=== PATIENT | male | born 1980 | race Caucasian/White ===

== ENCOUNTER 2017-03-27 09:54 | Emergency (ER) | payer SELFPAY ==
[~2017-03-27 09:54] MED LIST: AMOX875T PO; CIPR500T94 PO; HYDR-971 PO; MESA800T2 PO; METR500T PO; PRED-220 PO; PRED20TA PO; PRED50TA PO
[2017-03-27] MEDS ORDERED: PRED-220 PO (10:26)
--- NOTE | 2017-03-27 10:26 | PHYS DOC ---
Past History Past Medical History: Other Past Surgical History: No Surgical History Alcohol Use: None Drug Use: None Adult General Chief Complaint Chief Complaint: HEMORRHOIDS [facility] HPI Patient is a 36 year old male who presents with complaint of rectal pain and possible hemorrhoid. Patient states that he noticed the symptoms 3 days ago. Patient states he has history of ulcerative colitis and is currently having a flareup. Patient is not on any medications currently for control of his ulcerative colitis. Patient states that he had followed with a chamber magistrate in [place], [place] in the past but is not currently following with a specialist at this time. Patient states that he has been having multiple stools and has had increase in straining which likely led to his hemorrhoid. Patient states that the bump is along the right side of his anus. Patient states that the lesion is very tender to touch. Patient has been trying multiple therapies including hemorrhoid cream, sitz baths, and cleaning the area which has provided temporary relief of symptoms. Patient states that he has not had a hemorrhoid before thus he came to the emergency department to have it checked to see if this is indeed what it was. Review of Systems Review of Systems Constitutional: Denies fever or chills [] Eyes: Denies change in visual acuity, redness, or eye pain [] HENT: Denies nasal congestion or sore throat [] Respiratory: Denies cough or shortness of breath [] Cardiovascular: No additional information not addressed in HPI [] GI: Anal pain, anal swelling, abdominal pain, loose bloody stools, denies nausea and vomiting [] : Denies dysuria or hematuria [] Musculoskeletal: Denies back pain or joint pain [] Integument: Denies rash or skin lesions [] Neurologic: Denies headache, focal weakness or sensory changes [] Current Medications Current Medications Current Medications Medications (Trade) Dose Ordered Sig/[facility] Start Time Stop Time Status Last Admin Dose Admin Methylprednisolone Sodium Succinate (Solu-Medrol 125mg Vial) 125 mg 1X ONCE 03/27/17 10:45 03/27/17 10:46 Allergies Allergies Allergies Coded Allergies Type Severity Reaction Last Updated Verified No Known Drug Allergies 09/19/15 No Physical Exam Physical Exam Constitutional: Well developed, well nourished, no acute distress, non-toxic appearance. [] HENT: Normocephalic, atraumatic, bilateral external ears normal, oropharynx moist, no oral exudates, nose normal. [] Cardiovascular:Heart rate regular rhythm, no murmur [] Lungs & Thorax: Bilateral breath sounds clear to auscultation [] Abdomen: Bowel sounds normal, soft, mild left lower quadrant tenderness to palpation, no guarding or rebound tenderness, no masses, no pulsatile masses. Rectal: 2 cm swollen semiflexed hemorrhoid along right portion of the anus, tender to palpation, moderate perianal skin irritation, no active bleeding [] Skin: Warm, dry, no erythema, no rash. [] Back: No tenderness, no CVA tenderness. [] Extremities: No tenderness, no cyanosis, no clubbing, ROM intact, no edema. [] Neurologic: Alert and oriented X 3, normal motor function, normal sensory function, no focal deficits noted. [] EKG EKG Not performed [] Radiology/Procedures Radiology/Procedures Not performed [] Course & Med Decision Making Course & Med Decision Making Pertinent Labs and Imaging studies reviewed. (See chart for details) Patient has a hemorrhoid which feels mild to moderately fluctuant. This hemorrhoid has been present for the past 72 hours. Excision is not recommended at this time due to potential complications. After speaking with the patient, we decided the best course of therapy would be to start the patient on steroids which will help treat the patient's ulcerative colitis exacerbation as well as inflammation related to his hemorrhoid. Patient was given IM Solu-Medrol in the emergency department and will continue on prednisone taper as outpatient. Patient referred to Dr. Betts of gastroenterology and Dr. Garcia of general surgery for evaluation in the next 1-2 weeks. Advised return to the emergency department for any worsening symptoms. Patient voiced understanding and in agreement with treatment plan. Dragon Disclaimer Dragon Disclaimer This chart was dictated in whole or in part using Voice Recognition software in a busy, high-work load, and often noisy Emergency Department environment. It may contain unintended and wholly unrecognized errors or omissions. Departure Departure: Impression: Primary Impression: External hemorrhoid Additional Impression: Ulcerative colitis Disposition: 01 HOME, SELF-CARE Condition: IMPROVED Referrals: WILLIS STUBBS DO (PCP) NALLELY BETTS MD, THOMAS W MD Patient Instructions: Hemorrhoids, Ulcerative Colitis Additional Instructions: Follow-up with gastroenterology in the next 1-2 weeks. You may need to have general surgical evaluation for persistent or recurrent hemorrhoids. This can be done in the next 1-2 weeks. Return to the emergency department for any worsening symptoms. Scripts Prednisone (PREDNISONE) 10 Mg Tablet 10 MG PO UD for PREDNISONE TAPER, #39 TAB 0 Refills Take 3 tablets by mouth twice a day for 3 days, then take 2 tablets by mouth twice a day for 3 days, then take 1 tablet by mouth twice a day for 3 days, then take 1 tablet by mouth daily x 3 days, then stop. Prov: ELEONORA LOU MD 03/27/17 Problem Qualifiers Additional Impression: Ulcerative colitis Ulcerative colitis location: unspecified ulcerative colitis location Digestive disease complication type: unspecified complication Qualified Codes : K51.919 - Ulcerative colitis, unspecified with unspecified complications ELEONORA LOU MD March 27, 2017 10:26
[2017-03-27 10:45] VITALS: BP 149/81
[2017-03-27] MEDS ORDERED: methylPREDNISolone SOD SUCC PF 125 MG/2 ML VIAL. IM ONE (10:45)
== END 2017-03-27 10:45 | disposition home or self-care (01) ==
LOC: ER 09:54
DX: K64.4 Residual hemorrhoidal skin tags (principal); K51.90 Ulcerative colitis, unspecified, without complications
CPT/HCPCS: 96372; 99283; J2930

== ENCOUNTER 2017-06-04 12:17 | Emergency (ER) | payer SELFPAY ==
[~2017-06-04] VITALS: Ht 175.3 cm; Wt 117.0 kg
[2017-06-04] MEDS ORDERED: DICY10CA53 PO (13:04)
[2017-06-04] MEDS ORDERED: PRED50TA PO (13:04)
--- NOTE | 2017-06-04 13:04 | PHYS DOC ---
Past History Past Medical History: Other Past Surgical History: Other Alcohol Use: None Drug Use: None Adult General Chief Complaint Chief Complaint: ABDOMINAL PAIN HPI HPI Patient is a 36 year old male who presents with complaint of abdominal pain. Patient has history of ulcerative colitis. Patient states his symptoms have been present over the past 5 days. Patient states that he started having decreased appetite and mild abdominal discomfort at onset of symptoms. Patient states over the past 24 hours he has had sharp cramping abdominal pain which she states is primarily along the left side and middle of his abdomen. Patient states that this is typical for flareups of ulcerative colitis. Patient states that he is currently without insurance and does not have a architectural drafting instructor that he can follow with at this time. The patient states that he has been taking Tylenol with no relief in symptoms. Patient states that he has been on prednisone therapy which has typically controlled his symptoms. Patient states that he is no longer on Asacol and sulfasalazine as he cannot afford this medication at this time. Patient denies any fevers or bloody stools and has had no vomiting. Patient rates his pain as 6 out of 10 currently. Review of Systems Review of Systems Constitutional: Denies fever or chills [] Eyes: Denies change in visual acuity, redness, or eye pain [] HENT: Denies nasal congestion or sore throat [] Respiratory: Denies cough or shortness of breath [] Cardiovascular: Denies chest pain or edema [] GI: Abdominal pain, diarrhea, denies nausea, vomiting, or bloody stools [] : Denies dysuria or hematuria [] Musculoskeletal: Denies back pain or joint pain [] Integument: Denies rash or skin lesions [] Neurologic: Denies headache, focal weakness or sensory changes [] Allergies Allergies Allergies Coded Allergies Type Severity Reaction Last Updated Verified No Known Drug Allergies 09/19/15 No Physical Exam Physical Exam Constitutional: Well developed, well nourished, afebrile, appears in mild to moderate discomfort. [] HENT: Normocephalic, atraumatic, bilateral external ears normal, oropharynx moist, no oral exudates, nose normal. [] Eyes: PERRLA, EOMI, conjunctiva normal, no discharge. [] Neck: Normal range of motion, no tenderness, supple, no stridor. [] Cardiovascular:Heart rate regular rhythm, no murmur [] Lungs & Thorax: Bilateral breath sounds clear to auscultation [] Abdomen: Bowel sounds normal, soft, periumbilical and left-sided tenderness to palpation with guarding, no rebound tenderness, no masses, no pulsatile masses. [] Skin: Warm, dry, no erythema, no rash. [] Back: No tenderness, no CVA tenderness. [] Extremities: No tenderness, no cyanosis, no clubbing, ROM intact, no edema. [] Neurologic: Alert and oriented X 3, normal motor function, normal sensory function, no focal deficits noted. [] Current Patient Data Vital Signs Vital Signs Date Time Temp Pulse Resp B/P (MAP) Pulse Ox O2 Delivery O2 Flow Rate FiO2 06/04/17 12:56 98.1 82 22 98 Room Air EKG EKG Not performed [] Radiology/Procedures Radiology/Procedures Not performed [] Course & Med Decision Making Course & Med Decision Making Pertinent Labs and Imaging studies reviewed. (See chart for details) Patient's vital signs are stable. The patient's symptoms appear consistent with acute ulcerative colitis flareup. I expressed the patient concern over multiple prednisone treatment regimens that he has received over the past year. He states that this is not ideal for him, however he does not know what else to do as he does not have a architectural drafting instructor to follow with at this time. The patient sounds optimistic that he has a job opportunity which will allow him to get insurance and thus reestablish care within the next 1-2 months. The patient will be started on a 5 day course of prednisone including a loading dose which was given in the emergency department. Patient prescribed Bentyl and instructed to continue on Tylenol to help with abdominal pain symptoms. Recommended follow- up ideally in the next 3-5 days or at the next appointment at the patient is able to establish. Recommended return to emergency department for any worsening symptoms. Patient voiced understanding and in agreement with treatment plan. Dragon Disclaimer Dragon Disclaimer This chart was dictated in whole or in part using Voice Recognition software in a busy, high-work load, and often noisy Emergency Department environment. It may contain unintended and wholly unrecognized errors or omissions. Departure Departure: Impression: Primary Impression: Ulcerative colitis Disposition: 01 HOME, SELF-CARE Condition: STABLE Referrals: WILLIS STUBBS DO (PCP) Patient Instructions: Ulcerative Colitis Additional Instructions: Follow-up with a family physician in the next 5 days for reevaluation. Return to the emergency department for any worsening symptoms. Scripts Dicyclomine Hcl (BENTYL) 10 Mg Capsule 1 CAP PO TID, #90 CAP 0 Refills Prov: ELEONORA LOU MD 06/04/17 Prednisone (PREDNISONE) 50 Mg Tablet 1 TAB PO DAILY, #4 TAB Prov: ELEONORA LOU MD 06/04/17 Problem Qualifiers Primary Impression: Ulcerative colitis Ulcerative colitis location: unspecified ulcerative colitis location Digestive disease complication type: without complication Qualified Codes: K51.90 - Ulcerative colitis, unspecified, without complications ELEONORA LOU MD Jun 04, 2017 13:04
[2017-06-04] MEDS ORDERED: predniSONE 10 MG TABLET PO ONE (13:15)
[2017-06-04] MEDS ORDERED: DICYCLOMINE HCL 20 MG TABLET PO ONE (13:15)
[2017-06-04 13:18] VITALS: BP 130/79
== END 2017-06-04 13:15 | disposition home or self-care (01) ==
LOC: ER 12:17
DX: K51.90 Ulcerative colitis, unspecified, without complications (principal)
CPT/HCPCS: 99284; J7512

== ENCOUNTER 2017-08-11 12:54 | Emergency (ER) | payer SELFPAY ==
[~2017-08-11] VITALS: Ht 175.3 cm; Wt 113.4 kg
[~2017-08-11 12:54] MED LIST changes: +DICY10CA53 PO
[2017-08-11] MEDS ORDERED: PRED50TA PO (13:28)
--- NOTE | 2017-08-11 13:28 | PHYS DOC ---
Past History Past Medical History: Other Past Surgical History: Other Alcohol Use: None Drug Use: None Adult General Chief Complaint Chief Complaint: FOOT INJURY PAIN HPI HPI Patient is a 36 year old male who presents with left foot pain. the patient has 2 day history of pain over lateral left foot extending to 5th small toe. Denies any history of trauma. he wears steel toed boots at work. States he has pain with standing. Reports that the toe is slightly red. Denies fever. History of gout in the past & he is concerned that he is having recurrence. Review of Systems Review of Systems Constitutional: Denies fever or chills HENT: Denies nasal congestion or sore throat Respiratory: Denies cough or shortness of breath Cardiovascular: Denies chest pain GI: Denies abdominal pain, nausea, vomiting Musculoskeletal: Reports foot pain Integument: Denies rash or skin lesions Neurologic: Denies headache Allergies Allergies Allergies Coded Allergies Type Severity Reaction Last Updated Verified No Known Drug Allergies 09/19/15 No Physical Exam Physical Exam Constitutional: obese, no acute distress, non-toxic appearance. HENT: Normocephalic, atraumatic, bilateral external ears normal, oropharynx moist, nose normal. Eyes: conjunctiva normal, no discharge. Neck: supple, no stridor. Cardiovascular: no edema. Lungs & Thorax: no respiratory distress. Abdomen: nondistended. Skin: Warm, dry, no rash. Extremities: left foot without swelling or deformity, very slight erythema without warmth to 5th small toe, no pain with palpation of the toe but there is pain with palpation over distal 5th metatarsal. dp/pt 2+, sensation intact to foot. Neurologic: Alert and oriented X 3 EKG EKG [] Radiology/Procedures Radiology/Procedures [] Course & Med Decision Making Course & Med Decision Making Pertinent Labs and Imaging studies reviewed. (See chart for details) The patient presents with foot pain. Appears atypical for gout, more likely foot sprain or overuse injury. Recommend supportive care - rest, ice, elevate, tylenol or even better ibuprofen. Patient states he has ulcerative colitis & can't take NSAIDs. He is very concerned about returning to his work & that over the counter meds at home have not helped. I am reluctant to prescribe colchicine due to possible adverse effects with unclear diagnosis of gout. Ultimately I gave prescription for prednisone burst that he may fill as needed if symptoms do not resolve & if he has ongoing concern that this is gout. Would follow up with primary care or orthopedics if not improving in 1 week. Discharged home in stable condition. [] Dragon Disclaimer Dragon Disclaimer This chart was dictated in whole or in part using Voice Recognition software in a busy, high-work load, and often noisy Emergency Department environment. It may contain unintended and wholly unrecognized errors or omissions. Departure Departure: Impression: Primary Impression: Foot pain Disposition: HOME, SELF-CARE Condition: STABLE Referrals: PCP,TEMITOPE (PCP) AMINA BATRES MD Patient Instructions: Foot Sprain, Gout, [id number] Additional Instructions: You were seen in the emergency department today for foot pain. Exam suggests foot sprain but it is possible that this could be atypical gout. There is not an immediate cure. Please rest, ice, elevate, wear supportive shoes, take tylenol or ibuprofen for pain. You can take prednisone if desired which may help if it is in fact gout. Follow up with primary care physician or in the orthopedic clinic if symptoms persist greater than 1 week. Come back for high fever, spreading redness/warmth, any otherwise worsening condition. Scripts Prednisone (PREDNISONE) 50 Mg Tablet 1 TAB PO DAILY, #5 TAB Prov: CHICHI BARRAZA MD 08/11/17 CHICHI BARRAZA MD Aug 11, 2017 13:28
[2017-08-11 13:44] VITALS: BP 119/74
== END 2017-08-11 13:44 | disposition home or self-care (01) ==
LOC: ER 12:54
DX: M79.672 Pain in left foot (principal); M10.9 Gout, unspecified
CPT/HCPCS: 99283

== ENCOUNTER 2017-11-30 11:04 | Emergency (ER) | payer OTHER ==
[2017-11-30] MEDS ORDERED: METH4TAB2 PO (12:08)
[2017-11-30] MEDS ORDERED: SULFASALAZINE (12:08)
--- NOTE | 2017-11-30 12:09 | PHYS DOC ---
Past History Past Medical History: Other Additional Past Medical Histor: ulcerative colitis Past Surgical History: Tonsillectomy, Other Smoking: Non-smoker Alcohol Use: None Drug Use: None Adult General Chief Complaint Chief Complaint: OTHER COMPLAINTS, needs work excuse [facility] 37-year-old male patient with history of ulcerative colitis complaining of episodes of nonbloody diarrhea in the morning for the last 1 week. Patient states he had couple of episodes of accident while he was at work with stool incontinence before reaching to the bathroom and was sent home and his employer wants letter of return to work. Patient states he has appointment with his GI specialist few days and cannot wait until that time. Patient states he used to take Asacol and sulfasalazine but to stop few months ago after controlling of his symptoms with diet. Patient complaining of cramping abdominal pain and rated his pain mild and doesn't want to have blood tests or IV fluid and requesting refill of his sulfasalazine. Review of Systems Review of Systems Constitutional: Denies fever or chills [] Eyes: Denies change in visual acuity, redness, or eye pain [] HENT: Denies nasal congestion or sore throat [] Respiratory: Denies cough or shortness of breath [] Cardiovascular: No additional information not addressed in HPI [] GI: Denies nausea, vomiting, bloody stools, reports abdominal pain and diarrhea [] : Denies dysuria or hematuria [] Musculoskeletal: Denies back pain or joint pain [] Integument: Denies rash or skin lesions [] Neurologic: Denies headache, focal weakness or sensory changes [] Endocrine: Denies polyuria or polydipsia [] All other systems were reviewed and found to be within normal limits, except as documented in this note. Allergies Allergies Allergies Coded Allergies Type Severity Reaction Last Updated Verified No Known Drug Allergies 09/19/15 No Physical Exam Physical Exam Constitutional: Well developed, well nourished, no acute distress, non-toxic appearance. [] HENT: Normocephalic, atraumatic, bilateral external ears normal, oropharynx moist, no oral exudates, nose normal. [] Eyes: PERRLA, EOMI, conjunctiva normal, no discharge. [] Neck: Normal range of motion, no tenderness, supple, no stridor. [] Cardiovascular:Heart rate regular rhythm, no murmur [] Lungs & Thorax: Bilateral breath sounds clear to auscultation [] Abdomen: Bowel sounds normal, soft, no tenderness, no masses, no pulsatile masses. [] Skin: Warm, dry, no erythema, no rash. [] Back: No tenderness, no CVA tenderness. [] Extremities: No tenderness, no cyanosis, no clubbing, ROM intact, no edema. [] Neurologic: Alert and oriented X 3, normal motor function, normal sensory function, no focal deficits noted. [] Psychologic: Affect normal, judgement normal, mood normal. [] EKG EKG [] Radiology/Procedures Radiology/Procedures [] Course & Med Decision Making Course & Med Decision Making Evaluation of patient in ER showed 37-year-old male patient with history of ulcerative colitis who missed his job related to episodes of diarrhea and needs release to work. Patient had unremarkable physical exam and did not want to have blood test in ER. Plan discharge patient home with prescription of sulfasalazine and Medrol Dosepak and instruction to follow up with his GI specialist. Dragpanchito Disclaimer Gayathri Disclaimer This electronic medical record was generated, in whole or in part, using a voice recognition dictation system. Departure Departure: Impression: Primary Impression: Exacerbation of ulcerative colitis Additional Impression: Encounter to obtain excuse from work Disposition: HOME, SELF-CARE (At 1205) Condition: STABLE Referrals: NON,STAFF (PCP) Patient Instructions: Ulcerative Colitis Additional Instructions: Follow-up with your GI specialist in 3-5 days Return as needed Scripts Methylprednisolone (MEDROL) 4 Mg Tab.ds.pk 1 PKG PO UD, #1 PKG Prov: SAGAR ROCA MD 11/30/17 [sulsalazine] No Conflict Check 1 TAB BID, #60 Prov: SAGAR ROCA MD 11/30/17 Problem Qualifiers SAGAR ROCA MD Nov 30, 2017 12:09
[2017-11-30 12:36] VITALS: BP 119/87
== END 2017-11-30 12:36 | disposition home or self-care (01) ==
LOC: ER 11:04
DX: Z02.79 Encounter for issue of other medical certificate (principal); K51.80 Other ulcerative colitis without complications
CPT/HCPCS: 99283

== ENCOUNTER 2017-12-07 07:36 | Emergency (ER) | payer OTHER ==
[~2017-12-07 07:36] MED LIST changes: +METH4TAB2 PO; +SULFASALAZINE
[2017-12-07] MEDS ORDERED: CYCL-331 PO (08:58)
--- NOTE | 2017-12-07 08:58 | PHYS DOC ---
Past History Past Medical History: Other Additional Past Medical Histor: ulcerative colitis Past Surgical History: Tonsillectomy, Other Smoking: Non-smoker Alcohol Use: None Drug Use: None Adult General Chief Complaint Chief Complaint: SHOULDER INJURY HPI HPI Patient is a 37 year old M who presents with with right shoulder pain started after a fall this morning. States he fell up against his car with his arm overhead. He describes pain with AB duction. He also describes tingling in his first and second finger. He has no weakness. He does not feel that there is any chance he broke a bone. He has no other associated symptoms. He has no other exacerbating or relieving factors. Review of Systems Review of Systems Constitutional: Denies fever or chills [] Eyes: Denies change in visual acuity, redness, or eye pain [] HENT: Denies nasal congestion or sore throat [] Respiratory: Denies cough or shortness of breath [] Cardiovascular: No additional information not addressed in HPI [] GI: Denies abdominal pain, nausea, vomiting, bloody stools or diarrhea [] : Denies dysuria or hematuria [] Musculoskeletal: Negative except history of present illness Integument: Denies rash or skin lesions [] Neurologic: Denies headache, focal weakness or sensory changes [] Endocrine: Denies polyuria or polydipsia [] All other systems were reviewed and found to be within normal limits, except as documented in this note. Family History Family History No pertinent family medical history was reported Current Medications Current Medications Current medications were reviewed Allergies Allergies Allergies Coded Allergies Type Severity Reaction Last Updated Verified No Known Drug Allergies 09/19/15 No Physical Exam Physical Exam Constitutional: Well developed, well nourished, no acute distress, non-toxic appearance. [] HENT: Normocephalic, Eyes: EOMI, conjunctiva normal, no discharge. [] Neck: Normal range of motion, no tenderness, supple, no stridor. [] Cardiovascular:Heart rate regular rhythm, no murmur [] Lungs & Thorax: Bilateral breath sounds clear to auscultation [] Abdomen: Bowel sounds normal, soft, no tenderness, no masses, no pulsatile masses. [] Skin: Warm, dry, no erythema, no rash. [] Extremities: Right shoulder: Mild anterior swelling noted with mild generalized tenderness to palpation more localized over the deltoid and supraspinatus, passive range of motion normal however active range of motion is limited due to pain. Strength testing limited due to pain. Neurovascularly intact Neurologic: Alert and oriented X 3, normal motor function, normal sensory function, no focal deficits noted. [] Psychologic: Affect normal, judgement normal, mood normal. [] Current Patient Data Vital Signs Normal vital signs. Please review nursing documentation for specifics EKG EKG [] Radiology/Procedures Radiology/Procedures Imaging was declined Course & Med Decision Making Course & Med Decision Making Pertinent Labs and Imaging studies reviewed. (See chart for details) [] Dragon Disclaimer Dragon Disclaimer This electronic medical record was generated, in whole or in part, using a voice recognition dictation system. Departure Departure: Impression: Primary Impression: Right shoulder injury Disposition: HOME, SELF-CARE Condition: STABLE Referrals: NON,STAFF (PCP) Patient Instructions: Shoulder Sprain Additional Instructions: Chandu was seen in the emergency department for shoulder pain after an injury. No emergency medical condition was found on history or physical exam. His symptoms are most consistent with a shoulder strain versus rotator cuff injury versus mild stretch of his nerve. He is placed in a sling and given muscle relaxer for his pain. He was advised to follow-up with orthopedics and/or his primary care doctor as soon as possible for further management and to consider MRI. Scripts Cyclobenzaprine Hcl (CYCLOBENZAPRINE HCL) 10 Mg Tablet 1 TAB PO TID Y for PAIN for 3 Days, #9 TAB Prov: COLEEN ROBLES MD 12/07/17 Problem Qualifiers Primary Impression: Right shoulder injury Encounter type: initial encounter Qualified Codes: S49.91XA - Unspecified injury of right shoulder and upper arm, initial encounter COLEEN ROBLES MD Dec 07, 2017 08:58
[2017-12-07 09:09] VITALS: BP 143/92
== END 2017-12-07 09:09 | disposition home or self-care (01) ==
LOC: ER 07:36
DX: S49.91XA Unspecified injury of right shoulder and upper arm, initial encounter (principal); W19.XXXA Unspecified fall, initial encounter; Y93.89 Activity, other specified; Y99.8 Other external cause status; Y92.89 Other specified places as the place of occurrence of the external cause
CPT/HCPCS: 99283

== ENCOUNTER 2018-01-25 11:01 | Emergency (ER) | payer SELFPAY ==
[~2018-01-25] VITALS: Ht 177.8 cm; Wt 99.8 kg
[~2018-01-25 11:01] MED LIST changes: +CYCL-331 PO
[2018-01-25] MEDS ORDERED: IV NORMAL SALINE 1,000ML 1,000 ML IV SCH (11:15)
[2018-01-25] MEDS ORDERED: 0.9 % SODIUM CHLORIDE 10 ML DISP.SYRIN. IV PRN (11:15)
[2018-01-25] MEDS ORDERED: methylPREDNISolone SOD SUCC PF 125 MG/2 ML VIAL. IV ONE (11:45)
[2018-01-25] MEDS ORDERED: ONDANSETRON PF 4 MG/2 ML VIAL. IV ONE (11:45)
[2018-01-25 11:50] LABS: AMPHETAMINE/METHAMPHETAMINE NEG (NEG); BARBITURATES NEG (NEG); BENZODIAZEPINES NEG (NEG); CANNABINOIDS NEG (NEG); COCAINE NEG (NEG); METHADONE NEG (NEG); OPIATES NEG (NEG); PHENCYCLIDINE NEG (NEG)
[2018-01-25] MEDS ORDERED: IOHEXOL 240 MG/ML 50ML VIAL. PO ONE (12:00)
[2018-01-25] MEDS ORDERED: IOHEXOL 300 MG/ML 75 ML VIAL. IV ONE (12:00)
[2018-01-25 12:05] LABS: ALBUMIN 3.4 g/dL (3.4-5.0); ALBUMIN/GLOBULIN RATIO 0.8 (1.0-1.7); CALCIUM 9.2 mg/dL (8.5-10.1); CREATININE 1.3 mg/dL (0.7-1.3); GFR 62.8; POTASSIUM 3.9 mmol/L (3.5-5.1); TOTAL BILIRUBIN 0.3 mg/dL (0.2-1.0); TOTAL PROTEIN 7.9 g/dL (6.4-8.2)
[2018-01-25 12:06] LABS: AMORPHOUS SEDIMENT,UR PRESENT /HPF; BACTERIA,URINE 0 /HPF (0-FEW); BILIRUBIN,URINE NEG (NEG); CLARITY,URINE CLOUDY; COLOR,URINE YELLOW; GLUCOSE,URINE NEG (NEG); NITRITE,URINE NEG (NEG); RBC,URINE RARE /HPF (0-2); SQUAMOUS EPITHELIAL CELL,UR OCC /LPF; UROBILINOGEN,URINE 0.2 mg/dL (0.2 mg/dL); WBC,URINE 0 /HPF (0-4)
[2018-01-25 12:11] LABS: BASO # 0.1 x10^3/uL (0.0-0.2); BASO % 1 % (0-3); EOS # 0.2 x10^3/uL (0.0-0.7); EOS % 2 % (0-3); HEMATOCRIT 43.6 % (39.0-53.0); HEMOGLOBIN 14.8 g/dL (13.0-17.5); LYMPH # 1.5 x10^3/uL (1.0-4.8); LYMPH % 14 % (24-48); MEAN CORPUSCULAR HEMOGLOBIN 30 pg (25-35); MEAN CORPUSCULAR HGB CONC 34 g/dL (31-37); MEAN CORPUSCULAR VOLUME 88 fL (79-100); MONO # 1.1 x10^3/uL (0.0-1.1); MONO % 10 % (0-9); NEUT # 8.2 x10^3uL (1.8-7.7); NEUT % 74 % (31-73); PLATELET COUNT 414 x10^3/uL (140-400); RED BLOOD COUNT 4.98 x10^6/uL (4.30-5.70); RED CELL DISTRIBUTION WIDTH 13.2 % (11.5-14.5); WHITE BLOOD COUNT 11.2 x10^3/uL (4.0-11.0)
[2018-01-25 12:14] LABS: FECAL OB PT POSITIVE (NEG)
[2018-01-25] MEDS ORDERED: IV RINGERS SOLUTION,LACTATED 1,000 ML IV SCH (12:30)
--- NOTE | 2018-01-25 13:06 | RAD ---
CT abdomen/pelvis with contrast 01/25/2018 Indication: Abdominal pain for 3 days. Comparison: None available. Technique: Multiple axial CT images of the abdomen and pelvis were obtained after the intravenous administration of 74 cc Omnipaque 300. Coronal and sagittal reformats are provided. Findings: Visualized portions of the lung bases appear clear. Heart size is within normal limits. There is diffuse hypoattenuation of the hepatic parenchyma suggestive of hepatic steatosis. Few subcentimeter hypodensities are identified in the left hepatic lobe and right hepatic dome which are too small to characterize, however statistically felt to represent simple cysts. Spleen is nonenlarged. Pancreas is normal in appearance. Gallbladder is present without adjacent inflammatory changes. Adrenal glands are normal in appearance. Abdominal aorta is normal in course and caliber. There is no free fluid or free intraperitoneal air. The kidneys enhance symmetrically. No suspicious renal mass. No renal calculi are identified. There is no hydronephrosis. There is circumferential wall thickening involving the colon from the cecum to the rectum. Normal appendix is visualized. Mild pericolonic inflammatory changes are present. There are numerous nonenlarged mesenteric lymph nodes measuring up to 10 mm in the right lower quadrant (series 2, image 50). Prostate and seminal vesicles are normal. Urinary bladder is within normal limits given degree of distention. No suspicious osseous lesions are identified. Sacroiliac joints are normal in appearance. Impression: 1. Findings are suggestive of a pancolitis which may be of infectious/inflammatory etiology. Pancolitis may be seen in the setting of C. difficile. Consideration may be given for underlying inflammatory bowel disease (ulcerative colitis). Terminal ileum appears preserved. Mesenteric borderline lymph nodes are likely reactive. PQRS Compliance Statement: One or more of the following individualized dose reduction techniques were utilized for this examination: 1. Automated exposure control 2. Adjustment of the mA and/or kV according to patient size 3. Use of iterative reconstruction technique
--- NOTE | 2018-01-25 13:22 | PHYS DOC ---
Past History Past Medical History: Other Additional Past Medical Histor: ulcerative colitis Past Surgical History: Tonsillectomy, Other Smoking: Non-smoker Alcohol Use: None Drug Use: None Adult General Chief Complaint Chief Complaint: ABDOMINAL PAIN [facility] 37-year-old male patient with history of ulcerative colitis without taking medication for his disease states he usually has 5-8 episodes of diarrhea every day but for the last 1 week he had increasing number of his bowel movement with about 15 episodes of nonbloody stool but today he had small amount of dark red blood in stool. Patient complaining of left lower quadrant pain as a constant pain with radiation to his back that getting worse during bowel movement and rated his pain 6/10. Patient complaining of generalized weakness and unable to eat or drink anything because he gets bowel movement whenever he drinks or eats something. Patient denies fever and chills, cough and congestion, chest pain and shortness of breath. Patient states his urine is darker than usual. Review of Systems Review of Systems Constitutional: Denies fever or chills [] Eyes: Denies change in visual acuity, redness, or eye pain [] HENT: Denies nasal congestion or sore throat [] Respiratory: Denies cough or shortness of breath [] Cardiovascular: No additional information not addressed in HPI [] GI: Reports abdominal pain, bloody stools, diarrhea [] : Denies dysuria or hematuria [] Musculoskeletal: Denies back pain or joint pain [] Integument: Denies rash or skin lesions [] Neurologic: Denies headache, focal weakness or sensory changes [] Endocrine: Denies polyuria or polydipsia [] All other systems were reviewed and found to be within normal limits, except as documented in this note. Current Medications Current Medications Current Medications Medications (Trade) Dose Ordered Sig/Camacho Start Time Stop Time Status Last Admin Dose Admin Fentanyl Citrate (Fentanyl 2ml Vial) 50 mcg 1X ONCE 01/25/18 11:45 01/25/18 11:46 DC Iohexol (Omnipaque 240 Mg/ml) 30 ml 1X ONCE 01/25/18 12:00 01/25/18 12:01 DC 01/25/18 12:42 30 ML Iohexol (Omnipaque 300 Mg/ml) 75 ml 1X ONCE 01/25/18 12:00 01/25/18 12:01 DC 01/25/18 12:42 75 ML Lactated Ringer's 1,000 ml @ 1,000 mls/hr Q1H 01/25/18 12:30 01/25/18 11:25 1,000 MLS/HR Methylprednisolone Sodium Succinate (SOLU-Medrol 125MG VIAL) 125 mg 1X ONCE 01/25/18 11:45 01/25/18 11:46 DC 01/25/18 11:53 125 MG Ondansetron HCl (Zofran) 4 mg 1X ONCE 01/25/18 11:45 01/25/18 11:46 DC 01/25/18 11:52 4 MG Sodium Chloride (Normal Saline Flush) 10 ml QSHIFT PRN 01/25/18 11:15 Allergies Allergies Allergies Coded Allergies Type Severity Reaction Last Updated Verified No Known Drug Allergies 09/19/15 No Physical Exam Physical Exam Constitutional: Well developed, well nourished,mild distress, non-toxic appearance. [] HENT: Normocephalic, atraumatic, bilateral external ears normal, oropharynx moist, no oral exudates, nose normal. [] Eyes: PERRLA, EOMI, conjunctiva normal, no discharge. [] Neck: Normal range of motion, no tenderness, supple, no stridor. [] Cardiovascular:Heart rate regular rhythm, no murmur [] Lungs & Thorax: Bilateral breath sounds clear to auscultation [] Abdomen: Bowel sounds normal, soft, no tenderness, no masses, no pulsatile masses. [] Skin: Warm, dry, no erythema, no rash. [] Back: No tenderness, no CVA tenderness. [] Extremities: No tenderness, no cyanosis, no clubbing, ROM intact, no edema. [] Neurologic: Alert and oriented X 3, normal motor function, normal sensory function, no focal deficits noted. [] Psychologic: Affect normal, judgement normal, mood normal. [] Current Patient Data Vital Signs Vital Signs Date Time Temp Pulse Resp B/P (MAP) Pulse Ox O2 Delivery O2 Flow Rate FiO2 01/25/18 13:01 89 16 112/65 (81) 99 Room Air 01/25/18 11:14 98.4 Lab Results Laboratory Tests Test 01/25/18 11:25 01/25/18 11:33 01/25/18 11:45 Urine Collection Type Unknown Urine Color Yellow Urine Clarity Cloudy Urine pH 5.5 Urine Specific [place] 1.025 Urine Protein 30 mg/dl (NEG-TRACE) Urine Glucose (UA) Neg mg/dL (NEG) Urine Ketones (Stick) 15 mg/dL (NEG) Urine Blood Trace (NEG) Urine Nitrite Neg (NEG) Urine Bilirubin Neg (NEG) Urine Urobilinogen Dipstick 0.2 mg/dL (0.2 mg/dL) Urine Leukocyte Esterase Neg (NEG) Urine RBC Rare /HPF (0-2) Urine WBC 0 /HPF (0-4) Urine Squamous Epithelial Cells Occ /LPF Urine Amorphous Sediment Present /HPF Urine Bacteria 0 /HPF (0-FEW) Urine Mucus Slight /LPF Urine Opiates Screen Neg (NEG) Urine Methadone Screen Neg (NEG) Urine Barbiturates Neg (NEG) Urine Phencyclidine Screen Neg (NEG) Urine Amphetamine/Methamphetamine Neg (NEG) Urine Benzodiazepines Screen Neg (NEG) Urine Cocaine Screen Neg (NEG) Urine Cannabinoids Screen Neg (NEG) Urine Ethyl Alcohol Neg (NEG) White Blood Count 11.2 x10^3/uL (4.0-11.0) H Red Blood Count 4.98 x10^6/uL (4.30-5.70) Hemoglobin 14.8 g/dL (13.0-17.5) Hematocrit 43.6 % (39.0-53.0) Mean Corpuscular Volume 88 fL (79-100) Mean Corpuscular Hemoglobin 30 pg (25-35) Mean Corpuscular Hemoglobin Concent 34 g/dL (31-37) Red Cell Distribution Width 13.2 % (11.5-14.5) Platelet Count 414 x10^3/uL (140-400) H Neutrophils (%) (Auto) 74 % (31-73) H Lymphocytes (%) (Auto) 14 % (24-48) L Monocytes (%) (Auto) 10 % (0-9) H Eosinophils (%) (Auto) 2 % (0-3) Basophils (%) (Auto) 1 % (0-3) Neutrophils # (Auto) 8.2 x10^3uL (1.8-7.7) H Lymphocytes # (Auto) 1.5 x10^3/uL (1.0-4.8) Monocytes # (Auto) 1.1 x10^3/uL (0.0-1.1) Eosinophils # (Auto) 0.2 x10^3/uL (0.0-0.7) Basophils # (Auto) 0.1 x10^3/uL (0.0-0.2) Prothrombin Time 11.0 SEC (9.4-11.4) Prothrombin Time INR 1.1 (0.9-1.1) PTT 26 SEC (23-33) Sodium Level 140 mmol/L (136-145) Potassium Level 3.9 mmol/L (3.5-5.1) Chloride Level 103 mmol/L (98-107) Carbon Dioxide Level 26 mmol/L (21-32) Anion Gap 11 (6-14) Blood Urea Nitrogen 8 mg/dL (8-26) Creatinine 1.3 mg/dL (0.7-1.3) Estimated GFR (Cockcroft-Gault) 62.8 BUN/Creatinine Ratio 6 (6-20) Glucose Level 101 mg/dL (70-99) H Lactic Acid Level 2.0 mmol/L (0.4-2.0) Calcium Level 9.2 mg/dL (8.5-10.1) Total Bilirubin 0.3 mg/dL (0.2-1.0) Aspartate Amino Transferase (AST) 10 U/L (15-37) L Alanine Aminotransferase (ALT) 16 U/L (16-63) Alkaline Phosphatase 49 U/L (46-116) Total Protein 7.9 g/dL (6.4-8.2) Albumin 3.4 g/dL (3.4-5.0) Albumin/Globulin Ratio 0.8 (1.0-1.7) L Lipase 172 U/L (73-393) Stool Occult Blood Positive (NEG) EKG EKG [] Radiology/Procedures Radiology/Procedures [] IMAGING REPORT Signed PATIENT: JANA YODER ACCOUNT: [id number] : 1980 LOCATION: ER AGE: 37 SEX: M EXAM STATUS: REG ER ORD. PHYSICIAN: SAGAR ROCA MD REASON: abdominal pain and diarrhea PROCEDURE: CT ABD PELV W/ORAL&IV CONTRAST CT abdomen/pelvis with contrast 01/25/2018 Indication: Abdominal pain for 3 days. Comparison: None available. Technique: Multiple axial CT images of the abdomen and pelvis were obtained after the intravenous administration of 74 cc Omnipaque 300. Coronal and sagittal reformats are provided. Findings: Visualized portions of the lung bases appear clear. Heart size is within normal limits. There is diffuse hypoattenuation of the hepatic parenchyma suggestive of hepatic steatosis. Few subcentimeter hypodensities are identified in the left hepatic lobe and right hepatic dome which are too small to characterize, however statistically felt to represent simple cysts. Spleen is nonenlarged. Pancreas is normal in appearance. Gallbladder is present without adjacent inflammatory changes. Adrenal glands are normal in appearance. Abdominal aorta is normal in course and caliber. There is no free fluid or free intraperitoneal air. The kidneys enhance symmetrically. No suspicious renal mass. No renal calculi are identified. There is no hydronephrosis. There is circumferential wall thickening involving the colon from the cecum to the rectum. Normal appendix is visualized. Mild pericolonic inflammatory changes are present. There are numerous nonenlarged mesenteric lymph nodes measuring up to 10 mm in the right lower quadrant (series 2, image 50). Prostate and seminal vesicles are normal. Urinary bladder is within normal limits given degree of distention. No suspicious osseous lesions are identified. Sacroiliac joints are normal in appearance. Impression: 1. Findings are suggestive of a pancolitis which may be of infectious/inflammatory etiology. Pancolitis may be seen in the setting of C. difficile. Consideration may be given for underlying inflammatory bowel disease (ulcerative colitis). Terminal ileum appears preserved. Mesenteric borderline lymph nodes are likely reactive. PQRS Compliance Statement: One or more of the following individualized dose reduction techniques were utilized for this examination: 1. Automated exposure control 2. Adjustment of the mA and/or kV according to patient size 3. Use of iterative reconstruction technique Course & Med Decision Making Course & Med Decision Making Pertinent Labs and Imaging studies reviewed. (See chart for details) Evaluation of patient in ER showed 37-year-old male patient with history of ulcerative colitis presented to ER with complaining of increasing episodes of diarrhea and left lower quadrant pain for one week. Patient had unremarkable physical exam and treated with IV fluids and Zofran and Solu-Medrol. Patient did not want to have pain medication in ER. Labs was unremarkable and CT abdomen and pelvis showed pancreatitis. Prescription for sulfasalazine and [place] and Medrol Dosepak was given patient instructed to follow with his GI specialist and take liquid diet. discharge: I've spoken with the patient and/or caregivers. I've explained the patient's condition, diagnosis and treatment plan based on information available to me at this time. I've answered the patient's and/or caregivers questions and addressed any concerns. The patient and/or caregivers have a good understanding the patient's diagnosis, condition and treatment plan as can be expected at this point. Vital signs have been stabilized. The patient's condition is stable for discharge from the emergency department. The patient will pursue further outpatient evaluation with her primary care provider or other designated consulting physician as outlined in the discharge instructions. Patient and/or caregivers are agreeable to this plan of care and follow-up instructions have been explained in detail. The patient and/or caregivers have received these instructions in written format and expressed understanding of these discharge instructions. The patient and her caregivers are aware that if any significant change in condition or worsening of symptoms should prompt him to immediately return to this of the closest emergency department. If an emergent department is not readily available I would encourage him to call 911. Gayathri Disclaimer Dragon Disclaimer This electronic medical record was generated, in whole or in part, using a voice recognition dictation system. Departure Departure: Impression: Primary Impression: Exacerbation of ulcerative colitis Additional Impression: Pancolitis Disposition: HOME, SELF-CARE (At 1342) Condition: IMPROVED Referrals: PCP,NO (PCP) Patient Instructions: Ulcerative Colitis Additional Instructions: Drink plenty of liquids Follow-up with your primary care physician in 3-5 days Return to ER if not getting better Scripts Methylprednisolone (MEDROL) 4 Mg Tab.ds.pk 1 PKG PO UD, #1 PKG Prov: SAGAR ROCA MD 01/25/18 Sulfasalazine (SULFASALAZINE) 500 Mg Tablet 1000 MG PO TID, #120 TAB Prov: SAGAR ROCA MD 01/25/18 Hydrocodone Bit/Acetaminophen (NORCO 5-325 TABLET) 1 Each Tablet 1 TAB PO PRN Q6HRS Y for PAIN, #14 TAB 0 Refills Prov: SAGAR ROCA MD 01/25/18 Problem Qualifiers SAGAR ROCA MD Jan 25, 2018 13:22
[2018-01-25 13:23] VITALS: BP 115/64
[2018-01-25] MEDS ORDERED: SULF500T7 PO (13:46)
[2018-01-25] MEDS ORDERED: HYDR-971 PO (13:46)
[2018-01-25] MEDS ORDERED: METH4TAB2 PO (13:46)
== END 2018-01-25 13:50 | disposition home or self-care (01) ==
LOC: ER 11:01
DX: K51.811 Other ulcerative colitis with rectal bleeding (principal); K51.00 Ulcerative (chronic) pancolitis without complications
CPT/HCPCS: 36415; 74177; 80053; 80307; 81001; 82274; 83605; 83690; 85025; 85610; 85730; 87040; 96361; 96374; 96375; 99285; J2405; J2930; J7120; Q9966; Q9967; G0479

== ENCOUNTER 2018-04-19 12:05 | Emergency (ER) | payer SELFPAY ==
[~2018-04-19] VITALS: Ht 177.8 cm; Wt 95.3 kg
[~2018-04-19 12:05] MED LIST changes: +SULF500T7 PO
[2018-04-19] MEDS ORDERED: IV NORMAL SALINE 1,000ML 1,000 ML IV ONE (13:45)
[2018-04-19 14:04] LABS: ALBUMIN 3.2 g/dL (3.4-5.0); ALBUMIN/GLOBULIN RATIO 0.7 (1.0-1.7); CALCIUM 8.9 mg/dL (8.5-10.1); CREATININE 1.1 mg/dL (0.7-1.3); GFR 76.2; POTASSIUM 4.2 mmol/L (3.5-5.1); TOTAL BILIRUBIN 0.3 mg/dL (0.2-1.0); TOTAL PROTEIN 7.5 g/dL (6.4-8.2)
[2018-04-19] MEDS ORDERED: CONTRAST GIVEN MC PRN (14:45)
[2018-04-19 14:48] LABS: BASO # 0.1 x10^3/uL (0.0-0.2); BASO % 1 % (0-3); EOS # 0.4 x10^3/uL (0.0-0.7); EOS % 5 % (0-3); HEMATOCRIT 38.8 % (39.0-53.0); HEMOGLOBIN 13.2 g/dL (13.0-17.5); LYMPH # 1.6 x10^3/uL (1.0-4.8); LYMPH % 17 % (24-48); MEAN CORPUSCULAR HEMOGLOBIN 29 pg (25-35); MEAN CORPUSCULAR HGB CONC 34 g/dL (31-37); MEAN CORPUSCULAR VOLUME 85 fL (79-100); MONO # 0.8 x10^3/uL (0.0-1.1); MONO % 9 % (0-9); NEUT # 6.3 x10^3uL (1.8-7.7); NEUT % 68 % (31-73); PLATELET COUNT 465 x10^3/uL (140-400); RED BLOOD COUNT 4.57 x10^6/uL (4.30-5.70); RED CELL DISTRIBUTION WIDTH 13.4 % (11.5-14.5); WHITE BLOOD COUNT 9.2 x10^3/uL (4.0-11.0)
[2018-04-19] MEDS ORDERED: IOHEXOL 300 MG/ML 75 ML VIAL. IV ONE (15:00)
--- NOTE | 2018-04-19 15:57 | RAD ---
CT ABD PELV W/ IV CONTRST ONLY dated 04/19/2018 3:02 PM Indication: Abdominal pain.CHRONIC COLITIS. ABDOMINAL PAIN MORE THAN 24 HRS. [id number]/75ML. Comparison: 01/25/2018 Technique: Contiguous axial imaging the abdomen and pelvis performed after the intravenous administration of 75 cc Omnipaque 300. One or more of the following individualized dose reduction techniques were utilized for this examination: 1. Automated exposure control 2. Adjustment of the mA and/or kV according to patient size 3. Use of iterative reconstruction technique Findings: Limited images of lung bases are clear. Heart size within normal limits. No pleural or pericardial effusion. Liver, spleen, pancreas, adrenal glands, gallbladder and kidneys are unremarkable. No hydronephrosis. There is mild circumferential wall thickening involving the colon throughout with mild pericolonic inflammatory stranding and small nonpathologically enlarged pericolonic lymph nodes. No localized perforation or abscess. There is some fatty replacement of the submucosa. Appendix normal in caliber. There are a few borderline enlarged lymph nodes in the central mesentery measuring up to 10 mm short axis. There are also a few nonpathologically enlarged lymph nodes in the retroperitoneum. The abdominal aorta is normal in caliber. No significant ascites. Findings are similar to prior CT. Images of pelvis show nondistended urinary bladder. Prostate gland mildly enlarged. No free fluid is a calcified nodular focus in the left pelvis that measures about 2 cm in size, unchanged. No free pelvic fluid or pelvic lymphadenopathy. Bone windows show no acute findings. IMPRESSION: 1. Circumferential wall thickening of the colon with borderline enlarged mesenteric and pericolonic lymph nodes, similar to prior study. This is consistent with inflammatory bowel disease and is similar to prior exam, possibly related to ulcerative colitis. 2. No new abnormality. Normal appendix. 3. Small partially calcified nodule in the left pelvis is indeterminate but unchanged. Electronically signed by: Panda Sweeney MD (04/19/2018 3:53 PM) [facility] [place]
--- NOTE | 2018-04-19 16:23 | PHYS DOC ---
Past History Past Medical History: Other Additional Past Medical Histor: ulcerative colitis Past Surgical History: No Surgical History Smoking: Non-smoker Alcohol Use: None Drug Use: None Adult General Chief Complaint Chief Complaint: ABDOMINAL PAIN HPI HPI 37-year-old male presents with intermittent left lower quadrant abdominal pain for last 3 weeks. The patient has a history of ulcerative colitis. Over the last 1 week, the patient has had in increasingly loose stools and more abdominal pain. He has had some blood in the stool at this time.. Review of Systems Review of Systems Constitutional: Denies fever or chills [] Eyes: Denies change in visual acuity, redness, or eye pain [] HENT: Denies nasal congestion or sore throat [] Respiratory: Denies cough or shortness of breath [] Cardiovascular: No additional information not addressed in HPI [] GI: Denies abdominal pain, nausea, vomiting, bloody stools or diarrhea [] : Denies dysuria or hematuria [] Musculoskeletal: Denies back pain or joint pain [] Integument: Denies rash or skin lesions [] Neurologic: Denies headache, focal weakness or sensory changes [] Endocrine: Denies polyuria or polydipsia [] All other systems were reviewed and found to be within normal limits, except as documented in this note. Current Medications Current Medications Current Medications Medications (Trade) Dose Ordered Sig/Camacho Start Time Stop Time Status Last Admin Dose Admin Info (Do NOT chart on this entry -- for MONITORING) 1 each PRN DAILY PRN 04/19/18 14:45 04/21/18 14:44 Iohexol (Omnipaque 300 Mg/ml) 75 ml 1X ONCE 04/19/18 15:00 04/19/18 15:01 DC 04/19/18 15:09 75 ML Sodium Chloride 1,000 ml @ 1,000 mls/hr 1X ONCE 04/19/18 13:45 04/19/18 14:44 DC 04/19/18 14:29 1,000 MLS/HR Allergies Allergies Allergies Coded Allergies Type Severity Reaction Last Updated Verified No Known Drug Allergies 09/19/15 No Physical Exam Physical Exam Constitutional: Well developed, well nourished, no acute distress, non-toxic appearance. [] HENT: Normocephalic, atraumatic, bilateral external ears normal, oropharynx moist, no oral exudates, nose normal. [] Eyes: PERRLA, EOMI, conjunctiva normal, no discharge. [] Neck: Normal range of motion, no tenderness, supple, no stridor. [] Cardiovascular:Heart rate regular rhythm, no murmur [] Lungs & Thorax: Bilateral breath sounds clear to auscultation [] Abdomen: Bowel sounds normal, soft, no tenderness, no masses, no pulsatile masses. [] Skin: Warm, dry, no erythema, no rash. [] Back: No tenderness, no CVA tenderness. [] Extremities: No tenderness, no cyanosis, no clubbing, ROM intact, no edema. [] Neurologic: Alert and oriented X 3, normal motor function, normal sensory function, no focal deficits noted. [] Psychologic: Affect normal, judgement normal, mood normal. [] Current Patient Data Vital Signs Vital Signs Date Time Temp Pulse Resp B/P (MAP) Pulse Ox O2 Delivery O2 Flow Rate FiO2 04/19/18 13:37 97 16 120/66 (84) 97 Room Air 04/19/18 12:28 98.0 Lab Results Laboratory Tests Test 04/19/18 13:23 04/19/18 14:38 Sodium Level 139 mmol/L (136-145) Potassium Level 4.2 mmol/L (3.5-5.1) Chloride Level 104 mmol/L (98-107) Carbon Dioxide Level 26 mmol/L (21-32) Anion Gap 9 (6-14) Blood Urea Nitrogen 7 mg/dL (8-26) L Creatinine 1.1 mg/dL (0.7-1.3) Estimated GFR (Cockcroft-Gault) 76.2 BUN/Creatinine Ratio 6 (6-20) Glucose Level 76 mg/dL (70-99) Calcium Level 8.9 mg/dL (8.5-10.1) Total Bilirubin 0.3 mg/dL (0.2-1.0) Aspartate Amino Transferase (AST) 11 U/L (15-37) L Alanine Aminotransferase (ALT) 16 U/L (16-63) Alkaline Phosphatase 56 U/L (46-116) Total Protein 7.5 g/dL (6.4-8.2) Albumin 3.2 g/dL (3.4-5.0) L Albumin/Globulin Ratio 0.7 (1.0-1.7) L White Blood Count 9.2 x10^3/uL (4.0-11.0) Red Blood Count 4.57 x10^6/uL (4.30-5.70) Hemoglobin 13.2 g/dL (13.0-17.5) Hematocrit 38.8 % (39.0-53.0) L Mean Corpuscular Volume 85 fL (79-100) Mean Corpuscular Hemoglobin 29 pg (25-35) Mean Corpuscular Hemoglobin Concent 34 g/dL (31-37) Red Cell Distribution Width 13.4 % (11.5-14.5) Platelet Count 465 x10^3/uL (140-400) H Neutrophils (%) (Auto) 68 % (31-73) Lymphocytes (%) (Auto) 17 % (24-48) L Monocytes (%) (Auto) 9 % (0-9) Eosinophils (%) (Auto) 5 % (0-3) H Basophils (%) (Auto) 1 % (0-3) Neutrophils # (Auto) 6.3 x10^3uL (1.8-7.7) Lymphocytes # (Auto) 1.6 x10^3/uL (1.0-4.8) Monocytes # (Auto) 0.8 x10^3/uL (0.0-1.1) Eosinophils # (Auto) 0.4 x10^3/uL (0.0-0.7) Basophils # (Auto) 0.1 x10^3/uL (0.0-0.2) EKG EKG [] Radiology/Procedures Radiology/Procedures CT ABD PELV W/ IV CONTRST ONLY dated 04/19/2018 3:02 PM Indication: Abdominal pain.CHRONIC COLITIS. ABDOMINAL PAIN MORE THAN 24 HRS. [id number]/75ML. Comparison: 01/25/2018 Technique: Contiguous axial imaging the abdomen and pelvis performed after the intravenous administration of 75 cc Omnipaque 300. One or more of the following individualized dose reduction techniques were utilized for this examination: 1. Automated exposure control 2. Adjustment of the mA and/or kV according to patient size 3. Use of iterative reconstruction technique Findings: Limited images of lung bases are clear. Heart size within normal limits. No pleural or pericardial effusion. Liver, spleen, pancreas, adrenal glands, gallbladder and kidneys are unremarkable. No hydronephrosis. There is mild circumferential wall thickening involving the colon throughout with mild pericolonic inflammatory stranding and small nonpathologically enlarged pericolonic lymph nodes. No localized perforation or abscess. There is some fatty replacement of the submucosa. Appendix normal in caliber. There are a few borderline enlarged lymph nodes in the central mesentery measuring up to 10 mm short axis. There are also a few nonpathologically enlarged lymph nodes in the retroperitoneum. The abdominal aorta is normal in caliber. No significant ascites. Findings are similar to prior CT. Images of pelvis show nondistended urinary bladder. Prostate gland mildly enlarged. No free fluid is a calcified nodular focus in the left pelvis that measures about 2 cm in size, unchanged. No free pelvic fluid or pelvic lymphadenopathy. Bone windows show no acute findings. IMPRESSION: 1. Circumferential wall thickening of the colon with borderline enlarged mesenteric and pericolonic lymph nodes, similar to prior study. This is consistent with inflammatory bowel disease and is similar to prior exam, possibly related to ulcerative colitis. 2. No new abnormality. Normal appendix. 3. Small partially calcified nodule in the left pelvis is indeterminate but unchanged. Electronically signed by: Panda Sweeney MD (04/19/2018 3:53 PM) [facility] [place] Course & Med Decision Making Course & Med Decision Making Pertinent Labs and Imaging studies reviewed. (See chart for details) CT did show exacerbation of ulcerative colitis. I will treat him with 60 mg of prednisone daily as well as 4500 mg of sulfasalazine daily to induce remission. He will likely then continue the sulfasalazine for maintenance. The patient understands how important it is reestablish with a PCP. He will attempt to do this as soon as possible. He feels as though he is stable for discharge. [] Dragon Disclaimer Dragpanchito Disclaimer This electronic medical record was generated, in whole or in part, using a voice recognition dictation system. Departure Departure: Referrals: [facility] (PCP) Scripts Prednisone (PREDNISONE) 20 Mg Tablet 3 TAB PO DAILY for 14 Days, #42 TAB Prov: JANA FLORES DO 04/19/18 Sulfasalazine (SULFASALAZINE) 500 Mg Tablet 1500 MG PO TID for 28 Days, #252 TAB Prov: JANA FLORES DO 04/19/18 JANA FLORES DO April 19, 2018 16:23
[2018-04-19] MEDS ORDERED: PRED20TA PO (16:41)
[2018-04-19] MEDS ORDERED: SULF500T7 PO (16:41)
[2018-04-19] MEDS ORDERED: HYDROmorphone PF 2 MG/ML VIAL IV ONE (16:45)
[2018-04-19] MEDS ORDERED: predniSONE 20 MG TABLET PO ONE (17:00)
[2018-04-19 17:24] VITALS: BP 125/78
== END 2018-04-19 17:23 | disposition home or self-care (01) ==
LOC: ER 12:05
DX: K51.90 Ulcerative colitis, unspecified, without complications (principal)
CPT/HCPCS: 36415; 74177; 80053; 85025; 96374; 99285; J1170; J7512; Q9967; J7030

== ENCOUNTER 2019-04-08 11:52 | Emergency (ER) | payer SELFPAY ==
[~2019-04-08 11:52] MED LIST changes: +HYDR-3165 PO; -HYDR-971 PO
[2019-04-08 12:01] VITALS: BP 155/102
[2019-04-08] MEDS ORDERED: OXYC1TAB15 PO (12:17)
[2019-04-08] MEDS ORDERED: AMOX1TAB61 PO (12:17)
--- NOTE | 2019-04-08 14:02 | PHYS DOC ---
Past History Past Medical History: IBS, Other Additional Past Medical Histor: ulcerative colitis Past Surgical History: No Surgical History Smoking: Non-smoker Alcohol Use: None Drug Use: None Adult General Chief Complaint Chief Complaint: DENTAL PROBLEM HPI HPI Patient is a =38 yo m iwth toothache. has bad tooth going to get it pulled in five days. no fever pain radiates throughout the face improved minimally with tylenol cant take nsaids due to uc Review of Systems Review of Systems te. Allergies Allergies Allergies Coded Allergies Type Severity Reaction Last Updated Verified No Known Drug Allergies 09/19/15 No Physical Exam Physical Exam Constitutional: Well developed, well nourished, no acute distress, non-toxic appearance. [] HENT: Normocephalic, atraumatic, bilateral external ears normal, oropharynx moist, no oral exudates, nose normal. []There is a cracked tooth noted left upper gum area mild gingival swelling no obvious abscess or facial cellulitis Eyes: PERRLA, EOMI, conjunctiva normal, no discharge. [] \Pulmonary: Normal respiratory effort no increased work of breathing no obvious chest wall trauma Abdomen: Bowel sounds normal, soft, no tenderness, no masses, no pulsatile masses. [] Skin: Warm, dry, no erythema, no rash. [] Back: No tenderness, no CVA tenderness. [] Extremities: No tenderness, no cyanosis, no clubbing, ROM intact, no edema. [] Neurologic: Alert and oriented X 3, normal motor function, normal sensory function, no focal deficits noted. [] Psychologic: Affect normal, judgement normal, mood normal. [] Current Patient Data Vital Signs Vital Signs Date Time Temp Pulse Resp B/P (MAP) Pulse Ox O2 Delivery O2 Flow Rate FiO2 04/08/19 12:01 98.0 102 18 99 Room Air EKG EKG [] Radiology/Procedures Radiology/Procedures [] Course & Med Decision Making Course & Med Decision Making Pertinent Labs and Imaging studies reviewed. (See chart for details) Toothache with poor dentition mild gingival swelling prescription for Augmentin and short course of narcotic pain medication patient does appear uncomfortable I reviewed K tracts and he only has one prescription last 12 months Dragon Disclaimer Dragon Disclaimer This electronic medical record was generated, in whole or in part, using a voice recognition dictation system. Departure Departure: Impression: Primary Impression: Toothache Disposition: 01 HOME, SELF-CARE Condition: STABLE Patient Instructions: Toothache-Brief Scripts Amoxicillin/Potassium Clav (AUGMENTIN 875-125 TABLET) 1 Each Tablet 1 TAB PO BID for infection, #20 TAB Prov: ACACIA JACKSON MD 04/08/19 Oxycodone Hcl/Acetaminophen (PERCOCET 5-325 MG TABLET ) 1 Each Tablet 1 TAB PO PRN Q6HRS PRN for PAIN, #10 TAB Prov: ACACIA JACKSON MD 04/08/19 ACACIA JACKSON MD April 08, 2019 14:02
== END 2019-04-08 12:24 | disposition home or self-care (01) ==
LOC: ER 11:52
DX: K03.81 Cracked tooth (principal); K08.89 Other specified disorders of teeth and supporting structures; K58.9 Irritable bowel syndrome, unspecified
CPT/HCPCS: 99283

== ENCOUNTER 2019-05-08 14:30 | Emergency (ER) | payer SELFPAY ==
[~2019-05-08] VITALS: Ht 177.8 cm; Wt 101.2 kg
[~2019-05-08 14:30] MED LIST changes: +AMOX1TAB61 PO; +OXYC1TAB15 PO
[2019-05-08 14:57] VITALS: BP 127/82
[2019-05-08] MEDS ORDERED: TRAM50TA PO (15:31)
[2019-05-08] MEDS ORDERED: CLIN150C14 PO (15:31)
--- NOTE | 2019-05-08 15:32 | PHYS DOC ---
Past History Past Medical History: IBS, Other Additional Past Medical Histor: ulcerative colitis Past Surgical History: No Surgical History Smoking: Non-smoker Alcohol Use: None Drug Use: None Adult General Chief Complaint Chief Complaint: DENTAL PROBLEM HPI HPI Patient is a 38-year-old male presents with left upper dental pain that began several hours prior to arrival. Patient was seen approximately a month ago for similar, placed on Augmentin which improved his symptoms. He was unable to attend his follow-up appointment. He denies any current fevers. Reports that the pain is severe. He has not achieved any relief with acetaminophen. He is unable to take ibuprofen due to his ulcerative colitis. No fever. No nausea or vomiting.[] Review of Systems Review of Systems Constitutional: Denies fever or chills [] Eyes: Denies change in visual acuity, redness, or eye pain [] HENT: Denies nasal congestion or sore throat [] Respiratory: Denies cough or shortness of breath [] Cardiovascular: No chest pain or palpitations[] GI: Denies abdominal pain, nausea, vomiting, bloody stools or diarrhea [] : Denies dysuria or hematuria [] Musculoskeletal: Denies back pain or joint pain [] Integument: Denies rash or skin lesions [] Neurologic: Denies headache, focal weakness or sensory changes [] Endocrine: Denies polyuria or polydipsia [] All other systems were reviewed and found to be within normal limits, except as documented in this note. Allergies Allergies Allergies Coded Allergies Type Severity Reaction Last Updated Verified No Known Drug Allergies 09/19/15 No Physical Exam Physical Exam Constitutional: Well developed, well nourished, mild discomfort, non-toxic appearance. [] HENT: Normocephalic, atraumatic, bilateral external ears normal, oropharynx moist, no oral exudates, nose normal. Tooth #14 is cracked, tenderness to percussion, no focal abscess noted. Tooth #17, 18 and 19 are all broken at the base with poor dentition. There are multiple caries elsewhere. There is no tenderness to percussion of teeth #17, 18, and 19.[] Eyes: PERRLA, EOMI, conjunctiva normal, no discharge. [] Neck: Normal range of motion, no tenderness, supple, no stridor. [] Cardiovascular:Heart rate regular rhythm, no murmur [] Lungs & Thorax: Bilateral breath sounds clear to auscultation [] Abdomen: Not examined. [] Skin: Warm, dry, no erythema, no rash. [] Back: No tenderness, no CVA tenderness. [] Extremities: No tenderness, no cyanosis, no clubbing, ROM intact, no edema. [] Neurologic: Alert and oriented X 3, normal motor function, normal sensory function, no focal deficits noted. [] Psychologic: Affect normal, judgement normal, mood normal. [] Current Patient Data Vital Signs Vital Signs Date Time Temp Pulse Resp B/P (MAP) Pulse Ox O2 Delivery O2 Flow Rate FiO2 05/08/19 14:57 98.6 81 16 98 Room Air EKG EKG [] Radiology/Procedures Radiology/Procedures [] Course & Med Decision Making Course & Med Decision Making Pertinent Labs and Imaging studies reviewed. (See chart for details) Henrietta decision making: Patient appears to have a periapical abscess. Will place patient on different antibiotics as well as pain medicine. He is nontoxic. Discussed plan with patient who voiced understanding. All questions were answered. He was discharged in improved condition.[] Dragon Disclaimer Dragon Disclaimer This electronic medical record was generated, in whole or in part, using a voice recognition dictation system. Departure Departure: Impression: Primary Impression: Toothache Additional Impression: Dental abscess Disposition: 01 HOME, SELF-CARE Condition: IMPROVED Referrals: [facility] (PCP) Patient Instructions: Dental Abscess, Dental Caries Additional Instructions: Follow-up with your regular doctor as in 2 days. Take the medication as prescribed. Return to the ER if worsening pain or any other concerns. Scripts Clindamycin Hcl (CLINDAMYCIN HCL) 150 Mg Capsule 2 CAP PO QID for DENTAL INFECTION, #80 CAP Prov: RUPINDER HERNANDEZ DO 05/08/19 Tramadol Hcl (TRAMADOL HCL) 50 Mg Tablet 50 MG PO PRN Q6HRS PRN for PAIN, #20 TAB Prov: RUPINDER HERNANDEZ DO 05/08/19 Problem Qualifiers RUPINDER HERNANDEZ DO May 08, 2019 15:32
== END 2019-05-08 15:42 | disposition home or self-care (01) ==
LOC: ER 14:30
DX: K04.7 Periapical abscess without sinus (principal); K58.9 Irritable bowel syndrome, unspecified
CPT/HCPCS: 99283

== ENCOUNTER 2019-06-06 05:04 | Emergency (ER) | payer SELFPAY ==
[~2019-06-06] VITALS: Ht 177.8 cm; Wt 97.5 kg
[~2019-06-06 05:04] MED LIST changes: +CLIN150C14 PO; +TRAM50TA PO
[2019-06-06] MEDS ORDERED: IV NORMAL SALINE 1,000ML 1,000 ML IV SCH (06:15)
[2019-06-06] MEDS ORDERED: ONDANSETRON PF 4 MG/2 ML VIAL. IV ONE (06:15)
[2019-06-06] MEDS ORDERED: KETOROLAC 30 MG/ML VIAL. IV ONE (06:15)
--- NOTE | 2019-06-06 06:31 | PHYS DOC ---
Past History Past Medical History: IBS, Other Additional Past Medical Histor: ulcerative colitis Past Surgical History: No Surgical History Smoking: Non-smoker Alcohol Use: None Drug Use: None Adult General Chief Complaint Chief Complaint: ABDOMINAL PAIN [facility] HPI The patient is a pleasant 38-year-old male who presents for evaluation of diarrhea over the last few days. He states that he had a dental abscess and was prescribed some antibiotics and noticed the diarrhea afterward. He states this is happened to him multiple times in the past. He denies any history of C. difficile. He does have a history of ulcerative colitis and states that he believes this is the problem currently. He has some left lower quadrant abdominal discomfort going along with the diarrhea. He reports additionally some dehydration and nausea. He states that in the past his potassium has become low during similar episodes and he has required IV fluids and/or admission. He denies any rectal bleeding, hematemesis, fevers or chills, chest pain or shortness of breath, back or flank pain, urinary complaints, dizziness or syncope. He is here with his son who is also a patient for an unrelated condition. He is alert and oriented 4, calm, and appears to be no distress at this time. He states in the past has done well with Zofran and sulfasalazine for similar episodes. Review of Systems Review of Systems Constitutional: Denies fever or chills [] Eyes: Denies change in visual acuity, redness, or eye pain [] HENT: Denies nasal congestion or sore throat [] Respiratory: Denies cough or shortness of breath [] Cardiovascular: No additional information not addressed in HPI [] GI: Denies abdominal pain, nausea, vomiting, bloody stools or diarrhea [] : Denies dysuria or hematuria [] Musculoskeletal: Denies back pain or joint pain [] Integument: Denies rash or skin lesions [] Neurologic: Denies headache, focal weakness or sensory changes [] Endocrine: Denies polyuria or polydipsia [] All other systems were reviewed and found to be within normal limits, except as documented in this note. Current Medications Current Medications Current Medications Medications (Trade) Dose Ordered Sig/Camacho Start Time Stop Time Status Last Admin Dose Admin Ketorolac Tromethamine (Toradol 30mg Vial) 30 mg 1X ONCE 06/06/19 06:15 06/06/19 06:16 DC Ondansetron HCl (Zofran) 4 mg 1X ONCE 06/06/19 06:15 06/06/19 06:16 DC Sodium Chloride 1,000 ml @ 1,000 mls/hr Q1H 06/06/19 06:15 06/06/19 07:14 Allergies Allergies Allergies Coded Allergies Type Severity Reaction Last Updated Verified No Known Drug Allergies 09/19/15 No Physical Exam Physical Exam Constitutional: Well developed, well nourished, no acute distress, non-toxic appearance. HENT: Normocephalic, atraumatic, bilateral external ears normal, oropharynx moist, no oral exudates, nose normal. Eyes: PERRLA, EOMI, conjunctiva normal, no discharge. Neck: Normal range of motion, no tenderness, supple, no stridor. Cardiovascular:Heart rate regular rhythm, no murmur Lungs & Thorax: Bilateral breath sounds clear to auscultation Abdomen: Bowel sounds normal, soft, some moderate left lower quadrant tenderness is present no masses, no pulsatile masses. Skin: Warm, dry, no erythema, no rash. Back: No tenderness, no CVA tenderness. Extremities: No tenderness, no cyanosis, no clubbing, ROM intact, no edema. Neurologic: Alert and oriented X 3, normal motor function, normal sensory function, no focal deficits noted. Psychologic: Affect normal, judgement normal, mood normal. Current Patient Data Vital Signs Vital Signs Date Time Temp Pulse Resp B/P (MAP) Pulse Ox O2 Delivery O2 Flow Rate FiO2 06/06/19 06:10 98.4 96 18 97 Room Air EKG EKG [] Radiology/Procedures Radiology/Procedures [] Course & Med Decision Making Course & Med Decision Making @0801 - Patient updated on lab results. He states that his pain has completely resolved and he wants to go home. Advised patient to follow-up with his PCP in the next 2-3 days. He states that in the past has done well with Zofran and sulfasalazine so both of those has been ordered as home prescriptions. Additionally Bentyl has also been written. Advised the patient to return to the emergency Department immediately for any new or worsening symptoms. He expresses verbal understanding and agreement with the plan. Workup today fails reveal any emergent pathology. He is stable for discharge. Dragon Disclaimer Dragon Disclaimer This electronic medical record was generated, in whole or in part, using a voice recognition dictation system. Departure Departure: Impression: Primary Impression: Diarrhea Additional Impression: LLQ abdominal pain Disposition: 01 HOME, SELF-CARE Condition: IMPROVED Referrals: [facility] (PCP) Patient Instructions: Diarrhea, Ulcerative Colitis Additional Instructions: Follow-up with your doctor in the next 2-3 days. Return to the emergency Department immediately for new or worsening symptoms. Take the prescribed medication as directed. Scripts Dicyclomine Hcl (DICYCLOMINE HCL) 10 Mg Capsule 1 CAP PO TID PRN for abdominal pain/spasms, #20 CAP 0 Refills Prov: ZOHAIB LOUIS DO 06/06/19 Sulfasalazine (SULFASALAZINE) 500 Mg Tablet 500 MG PO Q6-8HRS PRN for PAIN for 7 Days, #20 TAB Prov: ZOHAIB LOUIS DO 06/06/19 Ondansetron Hcl (ZOFRAN) 4 Mg Tablet 1 TAB PO Q6HRS for nausea, #20 TAB Prov: ZOHAIB LOUIS DO 06/06/19 Problem Qualifiers ZOHAIB LOUIS DO Jun 06, 2019 06:30
[2019-06-06 07:10] LABS: ALBUMIN 3.5 g/dL (3.4-5.0); ALBUMIN/GLOBULIN RATIO 0.7 (1.0-1.7); CALCIUM 9.7 mg/dL (8.5-10.1); CREATININE 1.2 mg/dL (0.7-1.3); GFR 68.5; POTASSIUM 3.6 mmol/L (3.5-5.1); TOTAL BILIRUBIN 0.4 mg/dL (0.2-1.0); TOTAL PROTEIN 8.3 g/dL (6.4-8.2)
[2019-06-06 07:25] LABS: BASO # 0.1 x10^3/uL (0.0-0.2); BASO % 1 % (0-3); EOS # 0.3 x10^3/uL (0.0-0.7); EOS % 5 % (0-3); HEMATOCRIT 42.3 % (39.0-53.0); LYMPH # 1.6 x10^3/uL (1.0-4.8); LYMPH % 24 % (24-48); MEAN CORPUSCULAR HEMOGLOBIN 28 pg (25-35); MEAN CORPUSCULAR HGB CONC 33 g/dL (31-37); MEAN CORPUSCULAR VOLUME 84 fL (79-100); MONO # 0.9 x10^3/uL (0.0-1.1); MONO % 13 % (0-9); NEUT % 58 % (31-73); PLATELET COUNT 558 x10^3/uL (140-400); RED BLOOD COUNT 5.05 x10^6/uL (4.30-5.70); RED CELL DISTRIBUTION WIDTH 13.9 % (11.5-14.5); WHITE BLOOD COUNT 6.8 x10^3/uL (4.0-11.0)
[2019-06-06] MEDS ORDERED: DICY10CA3 PO (08:02)
[2019-06-06] MEDS ORDERED: ONDA4TAB7 PO (08:02)
[2019-06-06] MEDS ORDERED: SULF500T7 PO (08:02)
[2019-06-06 08:10] LABS: BACTERIA,URINE 0 /HPF (0-FEW); BILIRUBIN,URINE NEG (NEG); CLARITY,URINE HAZY; COLOR,URINE AMBER; GLUCOSE,URINE NEG (NEG); NITRITE,URINE NEG (NEG); RBC,URINE 0 /HPF (0-2); SQUAMOUS EPITHELIAL CELL,UR OCC /LPF; UROBILINOGEN,URINE 0.2 mg/dL (0.2 mg/dL); WBC,URINE 0 /HPF (0-4)
[2019-06-06 08:13] VITALS: BP 120/78
[2019-06-06 08:15] LABS: BARBITURATES NEG (NEG); BENZODIAZEPINES NEG (NEG); CANNABINOIDS NEG (NEG); COCAINE NEG (NEG); METHADONE NEG (NEG); OPIATES NEG (NEG); PHENCYCLIDINE NEG (NEG)
[2019-06-06 08:27] LABS: AMPHETAMINE/METHAMPHETAMINE NEG (NEG)
== END 2019-06-06 08:13 | disposition home or self-care (01) ==
LOC: ER 05:04
DX: R19.7 Diarrhea, unspecified (principal); K58.9 Irritable bowel syndrome, unspecified
CPT/HCPCS: 36415; 80053; 80307; 81001; 83690; 85025; 96361; 96374; 96375; 99285; J1885; J2405; J7030

== ENCOUNTER 2019-06-23 17:55 | Emergency (ER) | payer SELFPAY ==
[~2019-06-23] VITALS: Ht 177.8 cm; Wt 90.7 kg
[~2019-06-23 17:55] MED LIST changes: +DICY10CA3 PO; +ONDA4TAB7 PO
[2019-06-23] MEDS ORDERED: IV RINGERS SOLUTION,LACTATED 1,000 ML IV SCH (18:13)
--- NOTE | 2019-06-23 18:15 | ED.ADGEN ---
Past History Past Medical History: IBS, Other Additional Past Medical Histor: ulcerative colitis Past Surgical History: No Surgical History Smoking: Non-smoker Alcohol Use: None Drug Use: None Adult General Chief Complaint Chief Complaint ".. I have abdomen pain".. " I probably having a Ulcerative colitis flare...".. HPI HPI Patient is a 38 year old male who presents with abdomen pain, cramping, nausea, vomiting, diarrhea. Patient does have a history of ulcerative colitis and IBS. No recent travel or specific ill contacts. Recently had a tooth infection and was treated with antibiotics �2. At which she developed diarrhea. Patient not currently on any colitis meds.. Pt. none a follow-up colonoscopy for some years. Review of Systems Review of Systems Constitutional: Denies fever or chills [] Eyes: Denies change in visual acuity, redness, or eye pain [] HENT: Denies nasal congestion or sore throat [] Respiratory: Denies cough or shortness of breath [] Cardiovascular: No additional information not addressed in HPI [] GI: Hx. of abdominal pain, nausea, vomiting,and diarrhea [] : Denies dysuria or hematuria [] Musculoskeletal: Denies back pain or joint pain [] Integument: Denies rash or skin lesions [] Neurologic: Denies headache, focal weakness or sensory changes [] Endocrine: Denies polyuria or polydipsia [] All other systems were reviewed and found to be within normal limits, except as documented in this note. Family History Family History Noncontributory Current Medications Current Medications Current Medications Medications (Trade) Dose Ordered Sig/Camacho Start Time Stop Time Status Last Admin Dose Admin Famotidine (Pepcid Vial) 20 mg 1X ONCE 06/23/19 19:00 06/23/19 19:01 DC 06/23/19 19:16 20 MG Ketorolac Tromethamine (Toradol 30mg Vial) 30 mg 1X ONCE 06/23/19 19:00 06/23/19 19:01 DC 06/23/19 19:16 30 MG Lactated Ringer's 1,000 ml @ 1,000 mls/hr Q1H 06/23/19 18:13 06/23/19 19:12 DC 06/23/19 19:17 1,000 MLS/HR Methylprednisolone Sodium Succinate (SOLU-Medrol 125MG VIAL) 125 mg 1X ONCE 06/23/19 20:15 06/23/19 20:16 DC 06/23/19 20:57 125 MG Metronidazole 100 ml @ 100 mls/hr 1X ONCE 06/23/19 20:15 06/23/19 21:14 DC 06/23/19 21:03 100 MLS/HR Ondansetron HCl (Zofran) 8 mg 1X ONCE 06/23/19 19:00 06/23/19 19:01 DC 06/23/19 19:16 8 MG Allergies Allergies Allergies Coded Allergies Type Severity Reaction Last Updated Verified No Known Drug Allergies 09/19/15 No Physical Exam Physical Exam Constitutional: Well developed, well nourished, [id number] acute distress, non-toxic appearance. [] HENT: Normocephalic, atraumatic, bilateral external ears normal, oropharynx moist, no oral exudates, nose normal. [] Eyes: PERRLA, EOMI, conjunctiva normal, no discharge. [] Neck: Normal range of motion, no tenderness, supple, no stridor. [] Cardiovascular: Tachycardia Heart rate regular rhythm, no murmur [] Lungs & Thorax: Bilateral breath sounds clear to auscultation [] Abdomen: Bowel sounds are active, soft, generalized tenderness, no masses, no pulsatile masses. [] Rectal exam shows stool no gross blood. Does have some localized inflammation felt to be proctitis. No obvious external thrombosed hemorrhoid or abscess. . Skin: Warm, dry, no erythema, no rash. [] Back: No tenderness, no CVA tenderness. [] Extremities: No tenderness, no cyanosis, no clubbing, ROM intact, no edema. [] Neurologic: Alert and oriented X 3, normal motor function, normal sensory function, no focal deficits noted. [] Psychologic: Affect just, judgement normal, mood normal. [] Current Patient Data Vital Signs Vital Signs Date Time Temp Pulse Resp B/P (MAP) Pulse Ox O2 Delivery O2 Flow Rate FiO2 06/23/19 21:39 96 16 116/62 (80) 99 Room Air 06/23/19 18:26 98.1 Lab Results Laboratory Tests Test 06/23/19 19:00 White Blood Count 14.7 x10^3/uL (4.0-11.0) H Red Blood Count 5.20 x10^6/uL (4.30-5.70) Hemoglobin 14.2 g/dL (13.0-17.5) Hematocrit 43.4 % (39.0-53.0) Mean Corpuscular Volume 84 fL (79-100) Mean Corpuscular Hemoglobin 27 pg (25-35) Mean Corpuscular Hemoglobin Concent 33 g/dL (31-37) Red Cell Distribution Width 14.2 % (11.5-14.5) Platelet Count 656 x10^3/uL (140-400) H Neutrophils (%) (Auto) 73 % (31-73) Lymphocytes (%) (Auto) 14 % (24-48) L Monocytes (%) (Auto) 10 % (0-9) H Eosinophils (%) (Auto) 2 % (0-3) Basophils (%) (Auto) 1 % (0-3) Neutrophils # (Auto) 10.7 x10^3uL (1.8-7.7) H Lymphocytes # (Auto) 2.1 x10^3/uL (1.0-4.8) Monocytes # (Auto) 1.5 x10^3/uL (0.0-1.1) H Eosinophils # (Auto) 0.3 x10^3/uL (0.0-0.7) Basophils # (Auto) 0.1 x10^3/uL (0.0-0.2) Erythrocyte Sedimentation Rate 40 (0-15) H Prothrombin Time 10.6 SEC (9.4-11.4) Prothrombin Time INR 1.0 (0.9-1.1) PTT 30 SEC (23-33) Sodium Level 139 mmol/L (136-145) Potassium Level 3.5 mmol/L (3.5-5.1) Chloride Level 99 mmol/L (98-107) Carbon Dioxide Level 25 mmol/L (21-32) Anion Gap 15 (6-14) H Blood Urea Nitrogen 12 mg/dL (8-26) Creatinine 1.2 mg/dL (0.7-1.3) Estimated GFR (Cockcroft-Gault) 68.5 Glucose Level 92 mg/dL (70-99) Calcium Level 9.4 mg/dL (8.5-10.1) Total Bilirubin 0.4 mg/dL (0.2-1.0) Direct Bilirubin 0.1 mg/dL (0.0-0.2) Aspartate Amino Transferase (AST) 11 U/L (15-37) L Alanine Aminotransferase (ALT) 18 U/L (16-63) Alkaline Phosphatase 67 U/L (46-116) Troponin I Quantitative < 0.017 ng/mL (0-0.055) Total Protein 8.4 g/dL (6.4-8.2) H Albumin 3.6 g/dL (3.4-5.0) Lipase 147 U/L (73-393) EKG EKG My interpretation EKG shows a sinus rhythm at 95 bpm. No findings acute STEMI does have some mild leftward axis.[] Radiology/Procedures Radiology/Procedures [][address] [address] IMAGING REPORT Signed PATIENT: JANA RUSSO ACCOUNT: [id number] : 1980 LOCATION: ER AGE: 38 SEX: M EXAM STATUS: REG ER ORD. PHYSICIAN: WILLIS ZAMORA MD REASON: Severe lower abdomen pain. Hx: IBS PROCEDURE: ACUTE ABDOMEN SERIES Exam: Acute abdominal series INDICATION: Severe abdominal pain TECHNIQUE: Frontal view of the chest with upright and supine views of the abdomen Comparisons: None FINDINGS: The cardiomediastinal silhouette and pulmonary vessels are within normal limits. The lung and pleural spaces are clear. Air and stool are seen throughout the colon to the level of the rectum in a nonobstructive bowel gas pattern. No suspicious masses or calcifications. IMPRESSION: 1. No acute cardiopulmonary process. 2. Nonobstructive bowel gas pattern. Electronically signed by: Salvador Rico MD (06/23/2019 7:41 PM) [facility] DICTATED AND SIGNED BY: SALVADOR RICO MD DATE: 06/23/191940 CC: WILLIS ZAMORA MD; PCP,NO ~ Course & Med Decision Making Course & Med Decision Making Pertinent Labs and Imaging studies reviewed. (See chart for details) Patient's stay on clear fluid diet for 2 days to allow bowel rest. No solids or milk products. Push clear fluids. Patient to start mesalamine rectal suppository nightly. Also take mesalamine tablets are Asacol 4 times a day. Patient to follow-up with primary and GI. Patient also take Zofran 8 mg up 4 times a day for nausea and vomiting. Patient may take Percocet up to 4 times a day for marked discomfort. Patient to collect stool for C. difficile. Patient to take Flagyl 500 mg 3 times a day. Patient return if any concerns. [] Final Impression Final Impression 1. Abdomen pain 2. Suspect ulcerative colitis exacerbation 3. Mild leukocytosis 14.7 4. Mild elevation in platelets 656[] 5. Elevation in sedimentation rate 40 6. History of diarrhea-after 2 courses of antibiotics for tooth infection ( Suspect - C-dif) Dragon Disclaimer Dragon Disclaimer This electronic medical record was generated, in whole or in part, using a voice recognition dictation system. Discharge Summary Visit Information Final Diagnosis Problems Medical Problems: (1) Exacerbation of ulcerative colitis Status: Acute (2) Pain in the abdomen Status: Acute Brief Hospital Course Allergies Allergies Coded Allergies Type Severity Reaction Last Updated Verified No Known Drug Allergies 09/19/15 No Vital Signs Vital Signs Date Time Temp Pulse Resp B/P (MAP) Pulse Ox O2 Delivery O2 Flow Rate FiO2 06/23/19 21:39 96 16 116/62 (80) 99 Room Air 06/23/19 18:26 98.1 Lab Results Laboratory Tests Test 06/23/19 19:00 White Blood Count 14.7 x10^3/uL (4.0-11.0) Red Blood Count 5.20 x10^6/uL (4.30-5.70) Hemoglobin 14.2 g/dL (13.0-17.5) Hematocrit 43.4 % (39.0-53.0) Mean Corpuscular Volume 84 fL (79-100) Mean Corpuscular Hemoglobin 27 pg (25-35) Mean Corpuscular Hemoglobin Concent 33 g/dL (31-37) Red Cell Distribution Width 14.2 % (11.5-14.5) Platelet Count 656 x10^3/uL (140-400) Neutrophils (%) (Auto) 73 % (31-73) Lymphocytes (%) (Auto) 14 % (24-48) Monocytes (%) (Auto) 10 % (0-9) Eosinophils (%) (Auto) 2 % (0-3) Basophils (%) (Auto) 1 % (0-3) Neutrophils # (Auto) 10.7 x10^3uL (1.8-7.7) Lymphocytes # (Auto) 2.1 x10^3/uL (1.0-4.8) Monocytes # (Auto) 1.5 x10^3/uL (0.0-1.1) Eosinophils # (Auto) 0.3 x10^3/uL (0.0-0.7) Basophils # (Auto) 0.1 x10^3/uL (0.0-0.2) Erythrocyte Sedimentation Rate 40 (0-15) Prothrombin Time 10.6 SEC (9.4-11.4) Prothromb Time International Ratio 1.0 (0.9-1.1) Activated Partial Thromboplast Time 30 SEC (23-33) Sodium Level 139 mmol/L (136-145) Potassium Level 3.5 mmol/L (3.5-5.1) Chloride Level 99 mmol/L (98-107) Carbon Dioxide Level 25 mmol/L (21-32) Anion Gap 15 (6-14) Blood Urea Nitrogen 12 mg/dL (8-26) Creatinine 1.2 mg/dL (0.7-1.3) Estimated GFR (Cockcroft-Gault) 68.5 Glucose Level 92 mg/dL (70-99) Calcium Level 9.4 mg/dL (8.5-10.1) Total Bilirubin 0.4 mg/dL (0.2-1.0) Direct Bilirubin 0.1 mg/dL (0.0-0.2) Aspartate Amino Transf (AST/SGOT) 11 U/L (15-37) Alanine Aminotransferase (ALT/SGPT) 18 U/L (16-63) Alkaline Phosphatase 67 U/L (46-116) Troponin I Quantitative < 0.017 ng/mL (0-0.055) Total Protein 8.4 g/dL (6.4-8.2) Albumin 3.6 g/dL (3.4-5.0) Lipase 147 U/L (73-393) Brief Hospital Course Mr. Russo is a 38 old male who presented with hx ulcerative colitis Discharge Information Condition at Discharge: Improved, Stable Disposition/Orders: D/C to Home Dischare Medications Current Medications Lactated Ringer's 1,000 ml @ 1,000 mls/hr Q1H IV Last administered on 06/23/19at 19:17; Admin Dose 1,000 MLS/HR; Start 06/23/19 at 18:13; Stop 06/23/19 at 19:12; Status DC Ondansetron HCl (Zofran) 8 mg 1X ONCE IV Last administered on 06/23/19at 19:16; Admin Dose 8 MG; Start 06/23/19 at 19:00; Stop 06/23/19 at 19:01; Status DC Famotidine (Pepcid Vial) 20 mg 1X ONCE IVP Last administered on 06/23/19at 19 :16; Admin Dose 20 MG; Start 06/23/19 at 19:00; Stop 06/23/19 at 19:01; Status DC Ketorolac Tromethamine (Toradol 30mg Vial) 30 mg 1X ONCE IV Last administered on 06/23/19at 19:16; Admin Dose 30 MG; Start 06/23/19 at 19:00; Stop 06/23/19 at 19:01; Status DC Methylprednisolone Sodium Succinate (SOLU-Medrol 125MG VIAL) 125 mg 1X ONCE IV Last administered on 06/23/19at 20:57; Admin Dose 125 MG; Start 06/23/19 at 20:15; Stop 06/23/19 at 20:16; Status DC Metronidazole 100 ml @ 100 mls/hr 1X ONCE IV Last administered on 06/23/19at 21:03; Admin Dose 100 MLS/HR; Start 06/23/19 at 20:15; Stop 06/23/19 at 21:14; Status DC Active Scripts Active Percocet 5-325 Mg Tablet (Oxycodone Hcl/Acetaminophen) 1 Each Tablet 2 Tab PO PRN Q6HRS PRN Pentasa (Mesalamine) 500 Mg Capsule.er 1,000 Mg PO QID 30 Days Canasa (Mesalamine) 1,000 Mg Supp.rect 1 Supp RC QHS Flagyl (Metronidazole) 500 Mg Tablet 500 Mg PO TID 10 Days Zofran (Ondansetron Hcl) 8 Mg Tablet 8 Mg PO QIDPRN PRN Dicyclomine Hcl 10 Mg Capsule 1 Cap PO TID PRN Sulfasalazine 500 Mg Tablet 500 Mg PO Q6-8HRS PRN 7 Days Zofran (Ondansetron Hcl) 4 Mg Tablet 1 Tab PO Q6HRS Clindamycin Hcl 150 Mg Capsule 2 Cap PO QID Tramadol Hcl (Tramadol HCl) 50 Mg Tablet 50 Mg PO PRN Q6HRS PRN Augmentin 875-125 Tablet (Amoxicillin/Potassium Clav) 1 Each Tablet 1 Tab PO BID Percocet 5-325 Mg Tablet (Oxycodone Hcl/Acetaminophen) 1 Each Tablet 1 Tab PO PRN Q6HRS PRN Prednisone 20 Mg Tablet 3 Tab PO DAILY 14 Days Sulfasalazine 500 Mg Tablet 1,500 Mg PO TID 28 Days Medrol (Methylprednisolone) 4 Mg Tab.ds.pk 1 Pkg PO UD Sulfasalazine 500 Mg Tablet 1,000 Mg PO TID Bowie 5-325 Tablet (Hydrocodone Bit/Acetaminophen) 1 Each Tablet 1 Tab PO PRN Q6HRS PRN Cyclobenzaprine Hcl 10 Mg Tablet 1 Tab PO TID PRN 3 Days Medrol (Methylprednisolone) 4 Mg Tab.ds.pk 1 Pkg PO UD [sulsalazine] 1 Tab BID Prednisone 50 Mg Tablet 1 Tab PO DAILY Bentyl (Dicyclomine Hcl) 10 Mg Capsule 1 Cap PO TID Prednisone 50 Mg Tablet 1 Tab PO DAILY Prednisone 10 Mg Tablet 10 Mg PO UD Take 3 tablets by mouth twice a day for 3 days, then take 2 tablets by mouth twice a day for 3 days, then take 1 tablet by mouth twice a day for 3 days, then take 1 tablet by mouth daily x 3 days, then stop. Prednisone 10 Mg Tablet 10 Mg PO UD Take 3 tablets by mouth twice a day for 3 days, then take 2 tablets by mouth twice a day for 3 days, then take 1 tablet by mouth twice a day for 3 days, then take 1 tablet by mouth daily x 3 days, then stop. Bowie 5-325 Tablet (Hydrocodone Bit/Acetaminophen) 1 Each Tablet 1-2 Tab PO PRN Q6HRS PRN Prednisone 10 Mg Tablet 10 Mg PO UD Take 4 tablets by mouth twice a day for 4 days, then take 3 tablets by mouth twice a day for 3 days, then take 2 tablet by mouth twice a day for 2 days, then take 1 tablet by mouth daily x 1 days, then stop. Amoxicillin 875 Mg Tablet 1 Tab PO BID Bowie 5-325 Tablet (Hydrocodone Bit/Acetaminophen) 1 Each Tablet 1 Tab PO PRN Q6HRS PRN Prednisone 50 Mg Tablet 1 Tab PO DAILY Reported No Known Medications Prior To Admisstion (Info) Each 1 Each Dragon Disclaimer This chart was dictated in whole or in part using Voice Recognition software in a busy, high-work load, and often noisy Emergency Department environment. It may contain unintended and wholly unrecognized errors or omissions. WILLIS ZAMORA MD Jun 23, 2019 18:15
--- NOTE | 2019-06-23 18:34 | EKG ---
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
[2019-06-23] MEDS ORDERED: FAMOTIDINE 20 MG/2 ML VIAL IVP ONE (19:00)
[2019-06-23] MEDS ORDERED: ONDANSETRON PF 4 MG/2 ML VIAL. IV ONE (19:00)
[2019-06-23] MEDS ORDERED: KETOROLAC 30 MG/ML VIAL. IV ONE (19:00)
[2019-06-23 19:17] LABS: BASO # 0.1 x10^3/uL (0.0-0.2); BASO % 1 % (0-3); EOS # 0.3 x10^3/uL (0.0-0.7); EOS % 2 % (0-3); HEMATOCRIT 43.4 % (39.0-53.0); HEMOGLOBIN 14.2 g/dL (13.0-17.5); LYMPH # 2.1 x10^3/uL (1.0-4.8); LYMPH % 14 % (24-48); MEAN CORPUSCULAR HEMOGLOBIN 27 pg (25-35); MEAN CORPUSCULAR HGB CONC 33 g/dL (31-37); MEAN CORPUSCULAR VOLUME 84 fL (79-100); MONO # 1.5 x10^3/uL (0.0-1.1); MONO % 10 % (0-9); NEUT # 10.7 x10^3uL (1.8-7.7); NEUT % 73 % (31-73); PLATELET COUNT 656 x10^3/uL (140-400); RED CELL DISTRIBUTION WIDTH 14.2 % (11.5-14.5); WHITE BLOOD COUNT 14.7 x10^3/uL (4.0-11.0)
--- NOTE | 2019-06-23 19:44 | RAD ---
Exam: Acute abdominal series INDICATION: Severe abdominal pain TECHNIQUE: Frontal view of the chest with upright and supine views of the abdomen Comparisons: None FINDINGS: The cardiomediastinal silhouette and pulmonary vessels are within normal limits. The lung and pleural spaces are clear. Air and stool are seen throughout the colon to the level of the rectum in a nonobstructive bowel gas pattern. No suspicious masses or calcifications. IMPRESSION: 1. No acute cardiopulmonary process. 2. Nonobstructive bowel gas pattern. Electronically signed by: Salvador Alvarado MD (06/23/2019 7:41 PM) [facility]
[2019-06-23 19:51] LABS: ALBUMIN 3.6 g/dL (3.4-5.0); CALCIUM 9.4 mg/dL (8.5-10.1); CREATININE 1.2 mg/dL (0.7-1.3); DIRECT BILIRUBIN 0.1 mg/dL (0.0-0.2); GFR 68.5; POTASSIUM 3.5 mmol/L (3.5-5.1); TOTAL BILIRUBIN 0.4 mg/dL (0.2-1.0); TOTAL PROTEIN 8.4 g/dL (6.4-8.2)
[2019-06-23] MEDS ORDERED: methylPREDNISolone SOD SUCC PF 125 MG/2 ML VIAL. IV ONE (20:15)
[2019-06-23] MEDS ORDERED: ONDA8TAB9 PO (20:24)
[2019-06-23] MEDS ORDERED: MESA10003 RC (20:24)
[2019-06-23] MEDS ORDERED: METR500T PO (20:24)
[2019-06-23] MEDS ORDERED: MESA500C PO (20:24)
[2019-06-23] MEDS ORDERED: OXYC1TAB15 PO (20:26)
[2019-06-23 21:39] VITALS: BP 116/62
== END 2019-06-23 22:09 | disposition home or self-care (01) ==
LOC: ER 17:55
DX: K51.90 Ulcerative colitis, unspecified, without complications (principal); D72.829 Elevated white blood cell count, unspecified; R70.0 Elevated erythrocyte sedimentation rate; R19.7 Diarrhea, unspecified
CPT/HCPCS: 36415; 74022; 80048; 80076; 83690; 84484; 85025; 85610; 85651; 85730; 87493; 93005; 96361; 96365; 96375; 99285; J1885; J2405; J2930; J3490; J7120

== ENCOUNTER 2019-06-29 09:13 | Emergency (ER) | payer SELFPAY ==
[~2019-06-29] VITALS: Ht 177.8 cm; Wt 115.3 kg
[~2019-06-29 09:13] MED LIST changes: +MESA10003 RC; +MESA500C PO; +ONDA8TAB9 PO
[2019-06-29] MEDS ORDERED: LIDOCAINE 2%/EPI 1:100,000 20 ML VIAL. IJ ONE (10:00)
--- NOTE | 2019-06-29 10:34 | PHYS DOC ---
Past History Past Medical History: IBS, Other Additional Past Medical Histor: ulcerative colitis Past Surgical History: No Surgical History Smoking: Non-smoker Alcohol Use: None Drug Use: None Adult General Chief Complaint Chief Complaint: GI PROBLEM HPI HPI Patient is a 38 year old male who presents with complaint of rectal pain. The patient has history of ulcerative colitis and was recently seen in the emergency department approximately one week ago. The patient was treated for abdominal pain. During the patient's evaluation, he was found to have evidence of C. difficile from labs ordered at that visit. Was ordered Flagyl for treatment but states that he was unable to afford the struck and has not been taking it. He notes that over the past week he also noticed a small lump posterior to his anus that over the past week has been increasing in size and becoming more painful. States that he is unable to sit at this time due to his pain. He states this is the primary reason why he came to the emergency department as he is concerned he may have either an infection or possible hemorrhoid causing severe pain at this time. Does note continued loose stools. No fever, nausea, or vomiting. Review of Systems Review of Systems Constitutional: Denies fever or chills [] Eyes: Denies change in visual acuity, redness, or eye pain [] HENT: Denies nasal congestion or sore throat [] Respiratory: Denies cough or shortness of breath [] Cardiovascular: Denies chest pain or edema[] GI: Rectal pain, diarrhea, denies nausea or vomiting[] : Denies dysuria or hematuria [] Musculoskeletal: Denies back pain or joint pain [] Integument: Denies rash or skin lesions [] Neurologic: Denies headache, focal weakness or sensory changes [] All other systems were reviewed and found to be within normal limits, except as documented in this note. Current Medications Current Medications Current Medications Medications (Trade) Dose Ordered Sig/Camacho Start Time Stop Time Status Last Admin Dose Admin Lidocaine/ Epinephrine (Xylocaine 2%-Epi 1:100,000) 20 ml 1X ONCE 06/29/19 10:00 06/29/19 10:01 DC Allergies Allergies Allergies Coded Allergies Type Severity Reaction Last Updated Verified No Known Drug Allergies 09/19/15 No Physical Exam Physical Exam Constitutional: Well developed, well nourished, appears in mild to moderate discomfort, nontoxic appearance. [] HENT: Normocephalic, atraumatic, bilateral external ears normal, oropharynx moist, no oral exudates, nose normal. [] Eyes: PERRLA, EOMI, conjunctiva normal, no discharge. [] Neck: Normal range of motion, no tenderness, supple, no stridor. [] Cardiovascular: Tachycardiac, regular rhythm, no murmur [] Lungs & Thorax: Bilateral breath sounds clear to auscultation [] Abdomen: Bowel sounds normal, soft, no tenderness, no masses, no pulsatile masses. Rectal: Significant amount of perianal erythema, 2-1/2 cm fluctuant erythematous lesion near tip of coccyx in perineum that is tender to palpation[] Skin: Warm, dry, no rash. [] Back: No tenderness, no CVA tenderness. [] Extremities: No tenderness, no cyanosis, no clubbing, ROM intact, no edema. [] Neurologic: Alert and oriented X 3, normal motor function, normal sensory function, no focal deficits noted. [] Current Patient Data Vital Signs Vital Signs Date Time Temp Pulse Resp B/P (MAP) Pulse Ox O2 Delivery O2 Flow Rate FiO2 06/29/19 09:34 98.0 101 20 99 Room Air Lab Results Not performed EKG EKG Not performed[] Radiology/Procedures Radiology/Procedures Indication: Perineal abscess Procedure: The patient was positioned appropriately and the skin over the incision site was prepped with Betadine. Local anesthesia was achieved with injection of lidocaine 2% with epinephrine. An incision was then made over the apex of the fluctuant lesion and copious amounts of purulent material was expressed. Loculations were probed. The drainage cavity was then irrigated with normal saline and removed with continuous suction. The patient�s tetanus status is up-to-date. The patient tolerated the procedure with discomfort but able to allow the full procedure to be performed. Complications: None[] Course & Med Decision Making Course & Med Decision Making Pertinent Labs and Imaging studies reviewed. (See chart for details) Incision and drainage was performed as outlined in procedure note. Patient given Augmentin in the emergency department. I spoke with Dr. Lizama of general surgery. He stated that the patient can follow-up in his clinic tomorrow for recheck. Prescribed Augmentin and oral vancomycin as patient will also need treatment for C. difficile. Recommended return to emergency department for any worsening symptoms. Patient was understanding and in agreement with treatment plan.[] Dragon Disclaimer Dragon Disclaimer This electronic medical record was generated, in whole or in part, using a voice recognition dictation system. Departure Departure: Impression: Primary Impression: Perineal abscess Additional Impression: C. difficile colitis Disposition: HOME, SELF-CARE Condition: IMPROVED Referrals: PCP,NO (PCP) MARILYNN LIZAMA MD Patient Instructions: Abscess, Perineal Additional Instructions: Follow-up with Dr. Lizama tomorrow for reevaluation. Take all antibiotic as prescribed for treatment of your infection. Return to the emergency department for any worsening symptoms. Scripts Hydrocodone Bit/Acetaminophen (NORCO 5-325 TABLET) 1 Each Tablet 1 TAB PO QID PRN for PAIN, #20 TAB Prov: ELEONORA LOU MD 06/29/19 Vancomycin Hcl (VANCOMYCIN HCL) 125 Mg Capsule 125 MG PO QID for 10 Days, #40 CAP Prov: ELEONORA LOU MD 06/29/19 Amoxicillin/Potassium Clav (AUGMENTIN 875-125 TABLET) 1 Each Tablet 1 TAB PO BID, #20 TAB Prov: ELEONORA LOU MD 06/29/19 Problem Qualifiers ELEONORA LOU MD Jun 29, 2019 10:34
[2019-06-29] MEDS ORDERED: AMOXICILLIN/K CLAV 875/125MG TABLET. PO ONE (10:45)
[2019-06-29] MEDS ORDERED: AMOX1TAB61 PO (11:04)
[2019-06-29] MEDS ORDERED: VANC125C3 PO (11:04)
[2019-06-29] MEDS ORDERED: HYDR-3165 PO (11:04)
[2019-06-29 11:30] VITALS: BP 125/75
== END 2019-06-29 11:32 | disposition home or self-care (01) ==
LOC: ER 09:13
DX: L02.215 Cutaneous abscess of perineum (principal); A04.72 Enterocolitis due to Clostridium difficile, not specified as recurrent; K58.9 Irritable bowel syndrome, unspecified
CPT/HCPCS: 10060; 56405; 99283; 99284

== ENCOUNTER 2021-04-27 12:22 | Emergency (ER) | payer SELFPAY ==
[~2021-04-27] VITALS: Ht 177.8 cm; Wt 110.9 kg
[~2021-04-27 12:22] MED LIST changes: -CLIN150C14 PO; +CLIN150C15 PO; -MESA10003 RC; +VANC125C3 PO; +[UNRECOGNIZED DRUG - CODE] RC
[2021-04-27] MEDS ORDERED: IV NORMAL SALINE 1,000ML 1,000 ML IV ONE (13:00)
--- NOTE | 2021-04-27 13:14 | PHYS DOC ---
Past History Past Medical History: IBS, Other Additional Past Medical Histor: ulcerative colitis Past Surgical History: No Surgical History Smoking: Non-smoker Alcohol Use: None Drug Use: None General Adult EDM: Chief Complaint: Abdominal pain HPI: HPI: 40-year-old male presents with left lower quadrant pain and blood in his stool. Patient has ulcerative colitis. He was diagnosed when he was 24. He has not had a flareup in quite some time. He comes the ER today because he has been having pain in more blood with his stool lately. Today, he passed a "large clot and then had a bout of fatigue afterwards". His abdominal pain is a cramping sensation of the left lower quadrant of moderate intensity that radiates to his back. He denies fever or chills. Review of Systems: Review of Systems: Constitutional: Denies fever or chills Eyes: Denies change in visual acuity HENT: Denies nasal congestion or sore throat Respiratory: Denies cough or shortness of breath Cardiovascular: Denies chest pain or edema GI: Left lower quadrant abdominal pain. Denies nausea, vomiting. : Bloody stool Musculoskeletal: Denies back pain or joint pain Integument: Denies rash Neurologic: Denies headache, focal weakness or sensory changes Endocrine: Denies polyuria or polydipsia Lymphatic: Denies swollen glands Psychiatric: Denies depression or anxiety Current Medications: Current Meds: Current Medications Medications (Trade) Dose Ordered Sig/Camacho Start Time Stop Time Status Last Admin Dose Admin Iohexol (Omnipaque 300 Mg/ml) 75 ml 1X ONCE 04/27/21 13:15 04/27/21 13:16 UNV Sodium Chloride 1,000 ml @ 1,000 mls/hr 1X ONCE 04/27/21 13:00 04/27/21 13:59 UNV Allergies: Allergies: Allergies Coded Allergies Type Severity Reaction Last Updated Verified No Known Drug Allergies 09/19/15 No Physical Exam: PE: Constitutional: Well developed, well nourished, obese, no acute distress, non- toxic appearance. [] HENT: Normocephalic, atraumatic, bilateral external ears normal, oropharynx moist, no oral exudates, nose normal. [] Eyes: PERRLA, EOMI, conjunctiva normal, no discharge. [] Neck: Normal range of motion, no tenderness, supple, no stridor. [] Cardiovascular: Heart rate regular rhythm, no murmur [] Lungs & Thorax: Bilateral breath sounds clear to auscultation [] Abdomen: Bowel sounds normal, soft, left lower quadrant tenderness, no masses, no pulsatile masses. [] Skin: Warm, dry, no erythema, no rash. [] Back: No tenderness, no CVA tenderness. [] Extremities: No tenderness, no cyanosis, no clubbing, ROM intact, no edema. [] Neurologic: Alert and oriented X 3, normal motor function, normal sensory function, no focal deficits noted. [] Psychologic: Affect normal, judgement normal, mood concerned. [] EKG: EKG: [] Radiology/Procedures: Radiology/Procedures: [] Impressions: EXAM: Abdomen and pelvis CT with intravenous contrast. HISTORY: Ulcerative colitis. Bloody stools. TECHNIQUE: Computed tomographic images of the abdomen and pelvis were obtained following the administration of intravenous contrast. Multiplanar reformatting was performed. *One or more of the following individualized dose reduction techniques were utilized for this examination: 1. Automated exposure control. 2. Adjustment of the mA and/or kV according to patient size. 3. Use of iterative reconstruction technique. COMPARISON: 04/19/2018. FINDINGS: Evaluation of the lower thorax demonstrates no infiltrate or pleural effusion. The heart is normal in size. There are few tiny hepatic cyst. There is no suspicious hepatic lesion. The gallbladder is unremarkable. There is a small proximal duodenal diverticulum. The pancreas is unremarkable. There are a few splenic granulomas. There is a splenule inferior to the spleen. There is a 3.1 cm nodule between the spleen and left adrenal gland which is likely a splenule rather than adrenal nodule. There is no suspicious renal lesion. There is no hydronephrosis. There is no appendicitis. There is circumferential wall thickening and slight surrounding pericolonic stranding and lymphadenopathy from the proximal descending colon to the mid sigmoid colon, consistent with acute colitis. The superimposed on colon ic wall thickening due to increased mural fat, a finding which can be seen as a sequela of prior inflammation. The bladder is empty. The aorta is normal in caliber. There are nonspecific retroperitoneal lymph nodes. There is no suspicious osseous lesion. There are multiple endplate Schmorl's nodes. There is grade 1 anterolisthesis of L5 on S1. There is a stable partially calcified soft tissue nodule within the left hemipelvis measuring 2.1 cm, possibly due to sequela of prior fat necrosis. IMPRESSION: Acute colitis involving the descending and sigmoid colon, similar appearance to the prior exam. This is superimposed on colonic wall changes due to the sequela of chronic inflammation. Electronically signed by: Jhoana Olvera MD (04/27/2021 1:47 PM) [id number] DICTATED AND SIGNED BY: JHOANA OLVERA MD DATE: 04/27/21 1334 CC: JANA FLORES DO; NON,STAFF ~MTH0 0 Heart Score: C/O Chest Pain: N/A Risk Factors: Risk Factors: DM, Current or recent (<one month) smoker, HTN, HLP, family history of CAD, obesity. Risk Scores: Score 0 - 3: 2.5% MACE over next 6 weeks - Discharge Home Score 4 - 6: 20.3% MACE over next 6 weeks - Admit for Clinical Observation Score 7 - 10: 72.7% MACE over next 6 weeks - Early Invasive Strategies Course & Med Decision Making: Course & Med Decision Making Pertinent Labs and Imaging studies reviewed. (See chart for details) The patient's labs are unremarkable. His CT scan does show acute inflammation with of the descending and sigmoid colon. This appears to be an ulcerative colitis flare. I will treat the patient with sulfasalazine and prednisone. He is stable for discharge at this time. [] Izabellaon Disclaimer: Dragpanchito Disclaimer: This electronic medical record was generated, in whole or in part, using a voice recognition dictation system. Departure Departure: Impression: Primary Impression: Exacerbation of ulcerative colitis Disposition: HOME / SELF CARE / HOMELESS Condition: STABLE Referrals: NON,STAFF (PCP) Patient Instructions: Ulcerative Colitis Scripts Prednisone (PREDNISONE) 50 Mg Tablet 1 TAB PO DAILY for ulcerative colitis for 7 Days, #7 TAB Prov: JANA FLORES DO 04/27/21 Sulfasalazine (SULFASALAZINE DR) 500 Mg Tablet.dr 2 TAB PO QID for ulcerative colitis for 30 Days, #240 TAB 0 Refills Prov: JANA FLORES DO 04/27/21 JANA FLORES DO Apr 27, 2021 13:14
[2021-04-27] MEDS ORDERED: IOHEXOL 300 MG/ML 75 ML VIAL. IV ONE (13:15)
[2021-04-27 13:33] LABS: BASO # 0.1 x10^3/uL (0.0-0.2); BASO % 1 % (0-3); EOS # 0.1 x10^3/uL (0.0-0.7); EOS % 2 % (0-3); HEMATOCRIT 40.7 % (39.0-53.0); HEMOGLOBIN 13.4 g/dL (13.0-17.5); LYMPH # 1.6 x10^3/uL (1.0-4.8); LYMPH % 25 % (24-48); MEAN CORPUSCULAR HEMOGLOBIN 28 pg (25-35); MEAN CORPUSCULAR HGB CONC 33 g/dL (31-37); MEAN CORPUSCULAR VOLUME 85 fL (79-100); MONO # 0.5 x10^3/uL (0.0-1.1); MONO % 7 % (0-9); NEUT # 4.1 x10^3uL (1.8-7.7); NEUT % 65 % (31-73); PLATELET COUNT 328 x10^3/uL (140-400); RED BLOOD COUNT 4.81 x10^6/uL (4.30-5.70); RED CELL DISTRIBUTION WIDTH 13.9 % (11.5-14.5); WHITE BLOOD COUNT 6.4 x10^3/uL (4.0-11.0)
[2021-04-27 13:44] LABS: BACTERIA,URINE 0 /HPF (0-FEW); BILIRUBIN,URINE NEG (NEG); CLARITY,URINE CLEAR; COLOR,URINE YELLOW; GLUCOSE,URINE NEG (NEG); NITRITE,URINE NEG (NEG); RBC,URINE 0 /HPF (0-2); UROBILINOGEN,URINE 0.2 mg/dL (0.2 mg/dL); WBC,URINE 0 /HPF (0-4)
--- NOTE | 2021-04-27 13:49 | RAD ---
EXAM: Abdomen and pelvis CT with intravenous contrast. HISTORY: Ulcerative colitis. Bloody stools. TECHNIQUE: Computed tomographic images of the abdomen and pelvis were obtained following the administ ration of intravenous contrast. Multiplanar reformatting was performed. *One or more of the following individualized dose reduction techniques were utilized for this examina tion: 1. Automated exposure control. 2. Adjustment of the mA and/or kV according to patient size. 3. Use of iterative reconstruction technique. COMPARISON: 04/19/2018. FINDINGS: Evaluation of the lower thorax demonstrates no infiltrate or pleural effusion. The heart is normal in size. There are few tiny hepatic cyst. There is no suspicious hepatic lesion. The gallblad tiffanie is unremarkable. There is a small proximal duodenal diverticulum. The pancreas is unremarkable. T here are a few splenic granulomas. There is a splenule inferior to the spleen. There is a 3.1 cm nodu le between the spleen and left adrenal gland which is likely a splenule rather than adrenal nodule. There is no suspicious renal lesion. There is no hydronephrosis. There is no appendicitis. There is c ircumferential wall thickening and slight surrounding pericolonic stranding and lymphadenopathy from the proximal descending colon to the mid sigmoid colon, consistent with acute colitis. The superimpos ed on colonic wall thickening due to increased mural fat, a finding which can be seen as a sequela of prior inflammation. The bladder is empty. The aorta is normal in caliber. There are nonspecific retroperitoneal lymph nod es. There is no suspicious osseous lesion. There are multiple endplate Schmorl's nodes. There is grad e 1 anterolisthesis of L5 on S1. There is a stable partially calcified soft tissue nodule within the left hemipelvis measuring 2.1 cm, possibly due to sequela of prior fat necrosis. IMPRESSION: Acute colitis involving the descending and sigmoid colon, similar appearance to the prio r exam. This is superimposed on colonic wall changes due to the sequela of chronic inflammation. Electronically signed by: Jhoana Olvera MD (04/27/2021 1:47 PM) [id number]
[2021-04-27 13:55] LABS: CALCIUM 9.1 mg/dL (8.5-10.1); GFR 83.6; POTASSIUM 4.1 mmol/L (3.5-5.1)
[2021-04-27 14:01] LABS: ALBUMIN 3.9 g/dL (3.4-5.0); ALBUMIN/GLOBULIN RATIO 0.9 (1.0-1.7); TOTAL BILIRUBIN 0.3 mg/dL (0.2-1.0); TOTAL PROTEIN 8.2 g/dL (6.4-8.2)
[2021-04-27] MEDS ORDERED: HYDROcodone/APAP 5/325MG 1 TAB TABLET PO ONE (14:30)
[2021-04-27] MEDS ORDERED: PRED50TA PO (14:55)
[2021-04-27] MEDS ORDERED: SULF500T36 PO (14:55)
[2021-04-27 15:05] VITALS: BP 121/87
== END 2021-04-27 15:11 | disposition home or self-care (01) ==
LOC: ER 12:22
DX: K51.90 Ulcerative colitis, unspecified, without complications (principal); K92.1 Melena
CPT/HCPCS: 36415; 74177; 80053; 81001; 85025; 96360; 96361; 99285; J7030; Q9967

== ENCOUNTER 2021-06-06 07:20 | Emergency (ER) | payer SELFPAY ==
[~2021-06-06] VITALS: Ht 177.8 cm; Wt 110.5 kg
[~2021-06-06 07:20] MED LIST changes: +SULF500T36 PO
[2021-06-06] MEDS ORDERED: ONDANSETRON PF 4 MG/2 ML VIAL. IVP ONE (07:45)
[2021-06-06] MEDS ORDERED: IOHEXOL 300 MG/ML 75 ML VIAL. IV ONE (07:45)
[2021-06-06] MEDS ORDERED: IV NORMAL SALINE 1,000ML 1,000 ML IV ONE (07:45)
--- NOTE | 2021-06-06 07:53 | PHYS DOC ---
Past History Past Medical History: Other Additional Past Medical Histor: ULCERTIVE COLITIS Past Surgical History: No Surgical History Smoking: Non-smoker Alcohol Use: Rarely Drug Use: None General Adult EDM: Chief Complaint: GI PROBLEM HPI: HPI: 40-year-old male presents with body aches, vomiting, diarrhea, and fever. The patient went out to eat with his son 3 days ago. Within a couple hours of getting home, they both started to have vomiting and diarrhea. His son improved yesterday around midday. The patient is still having chills, body aches, diarrhea with some blood. He has not vomited today. He is not vaccinated for COVID-19. He denies cough or shortness of breath. His fever was 101 but has improved today without medication. He decided 3 days was long enough that he should get checked out. Patient does have a history of ulcerative colitis and is currently taking medication. Review of Systems: Review of Systems: Constitutional: Fever, chills, body aches, fatigue. Eyes: Denies change in visual acuity HENT: Denies nasal congestion or sore throat Respiratory: Denies cough or shortness of breath Cardiovascular: Denies chest pain or edema GI: Denies abdominal pain. Nausea, vomiting, bloody stools with diarrhea : Denies dysuria Musculoskeletal: Denies back pain or joint pain Integument: Denies rash Neurologic: Headache. Denies focal weakness or sensory changes Endocrine: Denies polyuria or polydipsia Lymphatic: Denies swollen glands Psychiatric: Denies depression or anxiety Current Medications: Current Meds: Current Medications Medications (Trade) Dose Ordered Sig/Camacho Start Time Stop Time Status Last Admin Dose Admin Iohexol (Omnipaque 300 Mg/ml) 75 ml 1X ONCE 06/06/21 07:45 06/06/21 07:46 Ondansetron HCl (Zofran) 4 mg 1X ONCE 06/06/21 07:45 06/06/21 07:46 Sodium Chloride 1,000 ml @ 1,000 mls/hr 1X ONCE 06/06/21 07:45 06/06/21 08:44 Allergies: Allergies: Allergies Coded Allergies Type Severity Reaction Last Updated Verified No Known Drug Allergies 09/19/15 No Physical Exam: PE: Constitutional: Well developed, well nourished, obese, no acute distress, non- toxic appearance. [] HENT: Normocephalic, atraumatic, bilateral external ears normal, oropharynx moist, no oral exudates, nose normal. [] Eyes: PERRLA, EOMI, conjunctiva normal, no discharge. [] Neck: Normal range of motion, no tenderness, supple, no stridor. [] Cardiovascular:Heart rate regular rhythm, no murmur [] Lungs & Thorax: Bilateral breath sounds clear to auscultation [] Abdomen: Bowel sounds normal, soft, no tenderness, no masses, no pulsatile masses. [] Skin: Warm, dry, no erythema, no rash. [] Back: No tenderness, no CVA tenderness. [] Extremities: No tenderness, no cyanosis, no clubbing, ROM intact, no edema. [] Neurologic: Alert and oriented X 3, normal motor function, normal sensory function, no focal deficits noted. [] Psychologic: Affect normal, judgement normal, mood normal. [] Current Patient Data: Vital Signs: Vital Signs Date Time Temp Pulse Resp B/P (MAP) Pulse Ox O2 Delivery O2 Flow Rate FiO2 06/06/21 07:36 98.2 75 18 142/72 97 Room Air EKG: EKG: [] Radiology/Procedures: Radiology/Procedures: [] Impressions: Exam Date: 06/06/2021 7:53 AM XR CHEST 1V Indication: Reason: fever, concern for COVID / Spl. Instructions: / History: . FINDINGS/ IMPRESSION: Lung volumes are low. The cardiac silhouette and pulmonary vasculature are within normal limits. There is no focal consolidation, pleural effusion or pneumothorax. Electronically signed by: Enedina De La Torre MD (06/06/2021 8:21 AM) [id number] DICTATED AND SIGNED BY: ENEDINA DE LA TORRE MD DATE: 06/06/21 0820 CC: JANA FLORES DO; NON,STAFF ~MTH0 0 Exam Date: 06/06/2021 7:[address] ABDOMEN+PELVIS W Indication: Reason: blood in stool, hx UC / Spl. Instructions: / History: . TECHNIQUE: CT examination of the abdomen and pelvis was performed following the administration of oral and nonionic intravenous contrast. One or more of the following dose reduction techniques were utilized: *Automated exposure control (AEC) *Adjustment of mA and/or kV according to patient size *Use of iterative reconstruction technique *CT scan done according to ALYSIA or ALARA/IMAGE GENTLY COMPARISON: April 27, 2021 FINDINGS: The visualized lung bases are clear. There is a too small to characterize hypodensity in the left lobe of of the liver near the dome, unchanged. Calcified granulomas are seen in the spleen. The liver, gallbladder, spleen, pancreas, adrenal glands and kidneys are otherwise normal. Urinary bladder is normal in appearance. There is prominent submucosal fat involving the descending colon, sigmoid colon, and rectum which is nonspecific but can be seen with chronic inflammation. In addition, there is mural thickening and prominent enhancement with mild pericolonic fat stranding consistent with nonspecific acute colitis. There is no bowel obstruction. The appendix is normal. No significant atherosclerotic calcifications are seen. No lymphadenopathy or ascites is seen. Osseous structures are intact. IMPRESSION: Acute colitis involving the descending colon and sigmoid colon, similar compared to the prior exam. Findings of chronic inflammation involving the colon are al so noted. Overall appearance is similar compared to the prior exam. Electronically signed by: Enedina De La Torre MD (06/06/2021 8:28 AM) [id number] DICTATED AND SIGNED BY: ENEDINA DE LA TORRE MD DATE: 06/06/21820 CC: JANA FLORES DO; NON,STAFF ~MTH0 0 Heart Score: C/O Chest Pain: N/A Risk Factors: Risk Factors: DM, Current or recent (<one month) smoker, HTN, HLP, family history of CAD, obesity. Risk Scores: Score 0 - 3: 2.5% MACE over next 6 weeks - Discharge Home Score 4 - 6: 20.3% MACE over next 6 weeks - Admit for Clinical Observation Score 7 - 10: 72.7% MACE over next 6 weeks - Early Invasive Strategies Course & Med Decision Making: Course & Med Decision Making Pertinent Labs and Imaging studies reviewed. (See chart for details) The patient's labs are unremarkable. His chest x-ray is unremarkable. His CT of the abdomen and pelvis does show acute colitis. This is similar to his previous exam, but the patient was having a flare at that time. See official read for more details. He is already on medication. I have advised that he follow-up with his GI doctor. He is stable for discharge at this time. [] Dragon Disclaimer: Dragon Disclaimer: This electronic medical record was generated, in whole or in part, using a voice recognition dictation system. Departure Departure: Impression: Primary Impression: Exacerbation of ulcerative colitis Qualified Codes: K51.911 - Ulcerative colitis, unspecified with rectal bleeding Disposition: 01 HOME / SELF CARE / HOMELESS Condition: STABLE Referrals: NON,STAFF (PCP) Patient Instructions: Ulcerative Colitis JANA FLORES DO Jun 06, 2021 07:53
[2021-06-06] MEDS ORDERED: CONTRAST GIVEN. MC PRN (08:00)
[2021-06-06 08:15] LABS: BASO # 0.1 x10^3/uL (0.0-0.2); BASO % 1 % (0-3); EOS # 0.2 x10^3/uL (0.0-0.7); EOS % 3 % (0-3); HEMATOCRIT 41.2 % (39.0-53.0); HEMOGLOBIN 13.4 g/dL (13.0-17.5); LYMPH # 1.5 x10^3/uL (1.0-4.8); LYMPH % 29 % (24-48); MEAN CORPUSCULAR HEMOGLOBIN 28 pg (25-35); MEAN CORPUSCULAR HGB CONC 33 g/dL (31-37); MEAN CORPUSCULAR VOLUME 86 fL (79-100); MONO # 0.5 x10^3/uL (0.0-1.1); MONO % 10 % (0-9); NEUT # 2.9 x10^3uL (1.8-7.7); NEUT % 57 % (31-73); PLATELET COUNT 311 x10^3/uL (140-400); RED BLOOD COUNT 4.82 x10^6/uL (4.30-5.70); WHITE BLOOD COUNT 5.1 x10^3/uL (4.0-11.0)
--- NOTE | 2021-06-06 08:23 | RAD ---
Exam Date: 06/06/2021 7:53 AM XR CHEST 1V Indication: Reason: fever, concern for COVID / Spl. Instructions: / History: . FINDINGS/ IMPRESSION: Lung volumes are low. The cardiac silhouette and pulmonary vasculature are within normal limits. There is no focal consolidation, pleural effusion or pneumothorax. Electronically signed by: Elías De La Torre MD (06/06/2021 8:21 AM) [id number]
[2021-06-06 08:30] LABS: CALCIUM 8.7 mg/dL (8.5-10.1); CREATININE 1.1 mg/dL (0.7-1.3); GFR 74.9; POTASSIUM 4.2 mmol/L (3.5-5.1)
--- NOTE | 2021-06-06 08:31 | RAD ---
Exam Date: 06/06/2021 7:[address] ABDOMEN+PELVIS W Indication: Reason: blood in stool, hx UC / Spl. Instructions: / History: . TECHNIQUE: CT examination of the abdomen and pelvis was performed following the administration of or al and nonionic intravenous contrast. One or more of the following dose reduction techniques were ut ilized: *Automated exposure control (AEC) *Adjustment of mA and/or kV according to patient size *Use of iterative reconstruction technique *CT scan done according to ALARA, or ALARA/IMAGE GENTLY COMPARISON: April 27, 2021 FINDINGS: The visualized lung bases are clear. There is a too small to characterize hypodensity in the left lobe of of the liver near the dome, unch anged. Calcified granulomas are seen in the spleen. The liver, gallbladder, spleen, pancreas, adrenal glands and kidneys are otherwise normal. Urinary bladder is normal in appearance. There is prominent submucosal fat involving the descending colon, sigmoid colon, and rectum which is nonspecific but can be seen with chronic inflammation. In addition, there is mural thickening and pr ominent enhancement with mild pericolonic fat stranding consistent with nonspecific acute colitis. T here is no bowel obstruction. The appendix is normal. No significant atherosclerotic calcifications are seen. No lymphadenopathy or ascites is seen. Osseous structures are intact. IMPRESSION: Acute colitis involving the descending colon and sigmoid colon, similar compared to the prior exam. Findings of chronic inflammation involving the colon are also noted. Overall appearance is similar c ompared to the prior exam. Electronically signed by: Elías De La Torre MD (06/06/2021 8:28 AM) [id number]
[2021-06-06 08:36] LABS: ALBUMIN 3.8 g/dL (3.4-5.0); TOTAL BILIRUBIN 0.3 mg/dL (0.2-1.0); TOTAL PROTEIN 7.5 g/dL (6.4-8.2)
[2021-06-06 09:00] VITALS: BP 132/71
== END 2021-06-06 09:13 | disposition home or self-care (01) ==
LOC: ER 07:20
DX: K51.90 Ulcerative colitis, unspecified, without complications (principal); R51.9 Headache, unspecified
CPT/HCPCS: 36415; 71045; 74177; 80053; 85025; 96361; 96374; 99285; J2405; J7030; Q9967

== ENCOUNTER 2021-10-29 12:13 | Emergency (ER) | payer SELFPAY ==
[~2021-10-29] VITALS: Ht 177.8 cm; Wt 104.0 kg
[~2021-10-29 12:13] MED LIST changes: -CLIN150C15 PO; +CLIN150C16 PO; -CYCL-331 PO; +CYCL10TA19 PO
[2021-10-29 13:00] VITALS: BP 105/77
--- NOTE | 2021-10-29 14:20 | RAD ---
EXAM: AP, lateral and oblique views of the left knee DATE: 10/29/2021 1:25 PM INDICATION: Reason: swelling, KNEE PAIN / Spl. Instructions: / History: COMPARISON: No Prior FINDINGS: No acute fracture or dislocation. Small joint effusion. Joint spaces are preserved without significan t degenerative/proliferative change. 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 IMPRESSION: 1. No acute fracture or dislocation. 2. Small joint effusion Electronically signed by: Owen Stuart MD (10/29/2021 2:17 PM) DAMION
[2021-10-29] MEDS ORDERED: TRAM50TA PO (15:16)
[2021-10-29] MEDS ORDERED: METH4TAB2 PO (15:16)
--- NOTE | 2021-10-29 15:20 | PHYS DOC ---
Past History Past Medical History: Other Additional Past Medical Histor: ULCERTIVE COLITIS Past Surgical History: No Surgical History Smoking: Non-smoker Alcohol Use: None Drug Use: None General Adult EDM: Chief Complaint: LOWER EXTREMITY SWELLING HPI: HPI: Patient is a 41-year-old male coming in for left knee pain and swelling. States the pain started about 2 days ago. Patient states he was working and often is on his feet a lot, states that that day earlier he had been kneeling on his knees for a while. Denies any twisting or popping. Denies any fevers or systemic complaints. States he has had gout one time in his left ankle. Patient has a history of ulcerative colitis and has been trying not to take much ibuprofen but says ibuprofen helps her pain. Is able to ambulate and range of motion intact. Review of Systems: Review of Systems: All other systems within normal limits except for as noted in the HPI Allergies: Allergies: Allergies Coded Allergies Type Severity Reaction Last Updated Verified No Known Drug Allergies 09/19/15 No Physical Exam: PE: Constitutional: Well developed, well nourished, no acute distress, non-toxic appearance. [] HENT: Normocephalic, atraumatic, bilateral external ears normal, nose normal. [] Eyes: PERRLA, conjunctiva normal, no discharge. [] Neck: No rigidity, supple, no stridor. [] Cardiovascular: Regular rate and rhythm, brisk cap refill [] Lungs & Thorax: Non labored symmetric respirations, no tachypnea or respiratory distress [] Abdomen: Soft, nondistended. Skin: Warm, dry, no erythema, no rash. [] Back: Unremarkable Extremities: No deformities, range of motion grossly intact, no lower extremity edema. Left knee exam: Mild joint effusion, tenderness over lateral anterior left knee, no erythema or warmth, range of motion intact [] Neurologic: Alert and oriented X 3, no focal deficits noted. [] Psychologic: Affect normal, judgement normal, mood normal. [] Current Patient Data: Vital Signs: Vital Signs Date Time Temp Pulse Resp B/P (MAP) Pulse Ox O2 Delivery O2 Flow Rate FiO2 10/29/21 13:00 97.5 92 16 105/77 (86) 98 EKG: EKG: [] Radiology/Procedures: Radiology/Procedures: [address] [address] IMAGING REPORT Signed PATIENT: JANA YODER ACCOUNT: [id number] : 1980 LOCATION: ER AGE: 41 SEX: M EXAM STATUS: REG ER ORD. PHYSICIAN: GENESIS FRAZIER MD REASON: swelling, KNEE PAIN PROCEDURE: KNEE LEFT 3V EXAM: AP, lateral and oblique views of the left knee DATE: 10/29/2021 1:25 PM INDICATION: Reason: swelling, KNEE PAIN / Spl. Instructions: / History: COMPARISON: No Prior FINDINGS: No acute fracture or dislocation. Small joint effusion. Joint spaces are preserved without significant degenerative/proliferative change. Ossification distal patellar tendon likely from prior [place]. IMPRESSION: 1. No acute fracture or dislocation. 2. Small joint effusion Electronically signed by: Owen Stuart MD (10/29/2021 2:17 PM) [facility] DICTATED AND SIGNED BY: OWEN STUART MD DATE: 10/29/21 1416 CC: GENESIS FRAZIER MD; PCP,NO ~MTH0 0 [] Heart Score: C/O Chest Pain: No Risk Factors: Risk Factors: DM, Current or recent (<one month) smoker, HTN, HLP, family history of CAD, obesity. Risk Scores: Score 0 - 3: 2.5% MACE over next 6 weeks - Discharge Home Score 4 - 6: 20.3% MACE over next 6 weeks - Admit for Clinical Observation Score 7 - 10: 72.7% MACE over next 6 weeks - Early Invasive Strategies Course & Med Decision Making: Course & Med Decision Making Consistent with inflammation. Has ulcerative colitis is unable take NSAIDs. Discussed hinged knee brace and return precautions. Exam and history not concerning at this time for infectious etiology Dragon Disclaimer: Gayathri Disclaimer: This electronic medical record was generated, in whole or in part, using a voice recognition dictation system. Departure Departure: Impression: Primary Impression: Effusion, left knee Disposition: HOME / SELF CARE / HOMELESS Condition: STABLE Referrals: PCP,NO (PCP) Patient Instructions: RICE - Routine Care for Injuries Additional Instructions: Use a hinged knee brace whenever bearing weight on left leg. Symptoms not improving follow-up with orthopedics [facility] [address] [place] [address] Scripts Tramadol Hcl (TRAMADOL HCL) 50 Mg Tablet 50 MG PO PRN Q6HRS PRN for PAIN for 3 Days, #10 TAB Prov: GENESIS FRAZIER MD 10/29/21 Methylprednisolone (MEDROL) 4 Mg Tab.ds.pk 1 PKG PO UD for inflammation, #1 PKG Prov: GENESIS FRAZIER MD 10/29/21 GENESIS FRAZIER MD Oct 29, 2021 15:20
== END 2021-10-29 15:30 | disposition home or self-care (01) ==
LOC: ER 12:13
DX: M25.462 Effusion, left knee (principal); M25.562 Pain in left knee
CPT/HCPCS: 73562; 99283